=== PATIENT | male | born 1945 | race Caucasian/White ===

== ENCOUNTER 2017-01-07 08:00 | Outpatient (CLI) | payer MEDICARE, OTHER ==
[2017-01-07 14:40] LABS: BASOPHILS % (AUTO) 0.5 %; EOSINOPHILS # (AUTO) 0.1 10^3/uL (0.0-0.7); EOSINOPHILS % (AUTO) 1.8 %; HCT - HEMATOCRIT 48.9 % (42.0-52.0); HGB - HEMOGLOBIN 16.5 g/dL (14.0-18.0); LYMPHOCYTES # (AUTO) 1.9 10^3/uL (1.5-3.5); LYMPHOCYTES % (AUTO) 26.9 %; MEAN CORPUSCULAR HGB CONC 33.8 g/dL (32.0-36.0); MEAN CORPUSCULAR VOLUME 91.6 fL (80.0-94.0); MEAN PLATELET VOLUME 8.3 fL (7.4-11.4); MONOCYTES # (AUTO) 0.7 10^3/uL (0.0-1.0); MONOCYTES % (AUTO) 10.1 %; NEUTROPHILS # (AUTO) 4.3 10^3/uL (1.5-6.6); NEUTROPHILS % (AUTO) 60.7 %; RED BLOOD COUNT 5.33 10^6/uL (4.70-6.10); RED CELL DISTRIBUTION WIDTH 13.4 % (12.0-15.0)
[2017-01-07 14:43] LABS: ALBUMIN/GLOBULIN RATIO 1.3 (1.0-2.2); BUN - BLOOD UREA NITROGEN 14 mg/dL (6-20); CALCIUM 9.2 mg/dL (8.5-10.3); CARBON DIOXIDE - CO2 30 mmol/L (21-32); CHLORIDE 98 mmol/L (101-111); CHOLESTEROL 132 mg/dL; CREATININE 0.9 mg/dL (0.6-1.2); GFR - MDRD 84 (>89); GLUCOSE 80 mg/dL (70-100); HDL CHOLESTEROL 33 mg/dL; LDL/HDL RATIO 1.9 (<3.6); SODIUM 137 mmol/L (135-145); TOTAL PROTEIN 7.9 g/dL (6.7-8.2); TRIGLYCERIDES 184 mg/dL; VLDL CHOLESTEROL 37 mg/dL
== END 2017-01-07 23:59 | disposition home or self-care (01) ==
LOC: LAB.R 08:00
PROVIDERS: ATTEND Internal Medicine
DX: E78.5 Hyperlipidemia, unspecified (principal); I10 Essential (primary) hypertension; Z12.5 Encounter for screening for malignant neoplasm of prostate; Z79.899 Other long term (current) drug therapy
CPT/HCPCS: 80053; 80061; 85025; G0103; 84153

== ENCOUNTER 2017-09-04 08:18 | Day surgery (SDC) | payer MEDICARE, OTHER ==
[~2017-09-04 08:18] MED LIST: BRIMONIDINE 0.2% OPHTH DROPS 5 ML ONE; TIMOLOL 0.5% OPHTH DROPS ONE
[2017-09-04] MEDS ORDERED: LACTATED RINGERS 500 ML IV ONE (08:48)
[2017-09-04] MEDS ORDERED: KETOROLAC 0.45% OPHTH DROPS ONE (08:52)
[2017-09-04] MEDS ORDERED: PHENYLEPHRINE 2.5% OPHTH 2 ML DROPS ONE (08:52)
[2017-09-04] MEDS ORDERED: PROPARACAINE 0.5% OPHTH DROPS 15 ML ONE (08:52)
[2017-09-04] MEDS ORDERED: CYCLOPENTOLATE 1% OPHTH DROPS 2 ML ONE (08:52)
[2017-09-04] MEDS ORDERED: MIDAZOLAM 2 MG/2 ML VIAL IVP ONE (11:00)
[2017-09-04] MEDS ORDERED: EPINEPHrine 1 MG/ML AMP IR ONE (11:15)
[2017-09-04] MEDS ORDERED: BRIMONIDINE 0.2% OPHTH DROPS 5 ML OPTH ONE (11:15)
[2017-09-04] MEDS ORDERED: BSS/LIDOCAINE/EPINEPHRINE 1 ML SYRINGE IO ONE ×2 (11:16)
[2017-09-04] MEDS ORDERED: CHONDR SULF/HYALURONATE SYRINGE IO ONE (11:16)
[2017-09-04] MEDS ORDERED: TIMOLOL 0.5% OPHTH DROPS OPTH ONE (11:16)
[2017-09-04] MEDS ORDERED: TRIAMCIN/MOXIFLOX/VANCO 1 ML VIAL IO ONE (11:17)
[2017-09-04] MEDS ORDERED: PROPARACAINE 0.5% OPHTH DROPS 15 ML LEFTEYE ONE (11:17)
[2017-09-04 11:48] VITALS: BP 110/75
--- NOTE | 2017-09-04 20:41 | OPERATIVE REPORT ---
DATE OF SERVICE: 09/04/2017 Physician: Jesus Salguero MD PREOPERATIVE DIAGNOSIS: Visually significant cataract, left eye. This was his first cataract surgery. POSTOPERATIVE DIAGNOSIS: Visually significant cataract, left eye. This was his first cataract surgery. NAME OF PROCEDURE: Phacoemulsification with posterior chamber intraocular lens implant, left eye, with laser assist. SURGEON: Jesus Salguero MD ANESTHESIA: Monitored anesthesia care. COMPLICATIONS: None. OPERATIVE INDICATIONS: This is a 71-year-old man with progressive vision loss in the left eye due to 2+ nuclear sclerotic, 1+ cortical, and 1+ posterior subcapsular cataract. Best corrected visual acuity was not recorded. Indications for surgery were overall decrease in vision and difficulty driving at night because of headlights from other vehicles and/or street lights. He was consented at length concerning the risks and benefits of cataract surgery, after which he expressed a desire to proceed with surgery. OPERATIVE PROCEDURE: The patient was taken into OR #3 and placed under monitored anesthesia care. A surgical timeout was conducted confirming correct patient, correct procedure, and correct surgical site. He was placed on the LenSx laser and his eye was docked to the laser interface. The laser performed the capsulotomy, lens softening, phaco wounds and arcuate keratotomy incisions. He was then moved to the operating microscope, given topical anesthesia, and then prepped and draped in the usual sterile fashion. The eye was entered at the 6 and 3 o'clock position. Intracameral Shugarcaine was injected into the anterior chamber, followed by Viscoat. Capsulorrhexis flap created by the LenSx laser was removed from the anterior chamber. The nucleus was hydrodissected and phacoemulsified. The cortex was evacuated using automated infusion and aspiration. Provisc was injected in the capsular bag, and a 08.0 diopter intraocular lens inserted into the bag and rotated to axis 093 this being a toric [id number] IOL. Approximately 0.8 mL of a mixture of triamcinolone and moxifloxacin was injected subconjunctivally in the superior quadrant for infection and inflammation prophylaxis. I and A was used to evacuate the viscoelastic materials. The eye was inflated to physiologic pressure using balanced salt solution and found to be watertight, and the IOL was again verified to be at axis 093, as was necessary. The patient was then taken from the operating room in good condition and given postop instructions. TD: 09/04/2017 20:39
== END 2017-09-04 08:19 | disposition home or self-care (01) ==
LOC: SDS 08:18
PROVIDERS: ATTEND Ophthalmology
PROC: 08RK3JZ Replacement of Left Lens with Synthetic Substitute, Percutaneous Approach (ICD-10-PCS; principal; 2017-09-04 09:30)
DX: H25.812 Combined forms of age-related cataract, left eye (principal); I10 Essential (primary) hypertension; E78.00 Pure hypercholesterolemia, unspecified
CPT/HCPCS: 66984; A9270; J3490; V2632; V2787

== ENCOUNTER 2017-10-02 06:53 | Day surgery (SDC) | payer MEDICARE, OTHER ==
[2017-10-02] MEDS ORDERED: KETOROLAC 0.45% OPHTH DROPS ONE (07:14)
[2017-10-02] MEDS ORDERED: PHENYLEPHRINE 2.5% OPHTH 2 ML DROPS ONE (07:14)
[2017-10-02] MEDS ORDERED: CYCLOPENTOLATE 1% OPHTH DROPS 2 ML ONE (07:14)
[2017-10-02] MEDS ORDERED: PROPARACAINE 0.5% OPHTH DROPS 15 ML ONE (07:14)
[2017-10-02] MEDS ORDERED: BRIMONIDINE 0.2% OPHTH DROPS 5 ML ONE (07:21)
[2017-10-02] MEDS ORDERED: TIMOLOL 0.5% OPHTH DROPS ONE (07:21)
[2017-10-02] MEDS ORDERED: BSS/LIDOCAINE/EPINEPHRINE 1 ML SYRINGE ONE (07:22)
[2017-10-02] MEDS ORDERED: LACTATED RINGERS 500 ML IV ONE (07:23)
[2017-10-02] MEDS ORDERED: PROPARACAINE 0.5% OPHTH DROPS 15 ML RIGHTEYE ONE ×2 (07:24→08:43)
[2017-10-02] MEDS ORDERED: KETOROLAC 0.45% OPHTH DROPS RIGHTEYE ONE (07:24)
[2017-10-02] MEDS ORDERED: PHENYLEPHRINE 2.5% OPHTH 2 ML DROPS RIGHTEYE ONE (07:24)
[2017-10-02] MEDS ORDERED: CYCLOPENTOLATE 1% OPHTH DROPS 2 ML RIGHTEYE ONE (07:24)
[2017-10-02] MEDS ORDERED: MIDAZOLAM 2 MG/2 ML VIAL IVP ONE (08:33)
[2017-10-02] MEDS ORDERED: TRIAMCIN/MOXIFLOX/VANCO 1 ML VIAL IO ONE (08:43)
[2017-10-02] MEDS ORDERED: CHONDR SULF/HYALURONATE SYRINGE IO ONE (08:43)
[2017-10-02] MEDS ORDERED: EPINEPHrine 1 MG/ML AMP IR ONE (08:43)
[2017-10-02] MEDS ORDERED: BRIMONIDINE 0.2% OPHTH DROPS 5 ML OPTH ONE (08:43)
[2017-10-02] MEDS ORDERED: TIMOLOL 0.5% OPHTH DROPS OPTH ONE (08:43)
[2017-10-02] MEDS ORDERED: BSS/LIDOCAINE/EPINEPHRINE 1 ML SYRINGE IO ONE (08:43)
[2017-10-02 09:04] VITALS: BP 109/53
--- NOTE | 2017-10-02 10:32 | OPERATIVE REPORT ---
DATE OF SERVICE: 10/02/2017 Physician: Jesus Salguero MD PREOPERATIVE DIAGNOSIS: Visually significant cataract, right eye. Cataract surgery was performed on the left eye on 04 September 2017. POSTOPERATIVE DIAGNOSIS: Visually significant cataract, right eye. Cataract surgery was performed on the left eye on 04 September 2017. PROCEDURE PERFORMED: Phacoemulsification with posterior chamber intraocular lens implant, right eye. SURGEON: Jesus Salguero MD ANESTHESIA: Monitored anesthesia care. COMPLICATIONS: None. OPERATIVE INDICATIONS: This is a 71-year-old man with progressive vision loss in the right eye due to 2+ nuclear sclerotic cataract. Best corrected visual acuity was 20/25 with glare to 20/400 in the right eye. Indications for surgery were difficulty reading and a decrease in vision. He was consented at length concerning risks and benefits of cataract surgery after which he expressed desire to proceed with surgery. OPERATIVE PROCEDURE: The patient was taken into OR #3 and placed under monitored anesthesia care. Surgical time-out was conducted confirming correct patient, correct procedure and correct surgical site. He was placed under the LenSx laser and his eye docked to the laser interface. The laser performed the capsulotomy, lens softening, phaco wounds and arcuate keratotomy incisions. He was then moved to the operating microscope, given topical anesthesia and prepped and draped in the usual sterile fashion. Eye was entered at the 12 and 9 o'clock positions. Intracameral Shugarcaine was injected into the anterior chamber, followed by Viscoat. A capsulorrhexis flap created by the LenSx laser was removed from the anterior chamber. The nucleus was hydrodissected and phacoemulsified and the cortex was evacuated using automated infusion and aspiration. Provisc was injected in the capsular bag and a 9.0 diopter toric intraocular lens was inserted into the bag. This is a toric lens with an axis of 076. Once the lens was inserted and rotated to axis 076, approximately 0.8 mL of a mixture of triamcinolone and moxifloxacin and vancomycin was injected subconjunctivally in the superior quadrant for infection and inflammation prophylaxis. I and A was used to evacuate the viscoelastic material. The eye was inflated to physiologic pressure using balanced salt solution and found to be watertight. The IOL was then again verified to be at axis 076 as required. The patient was taken from the operating room in good condition and given postop instructions. TD: 10/02/2017 10:01 ARASELI
== END 2017-10-02 06:54 | disposition home or self-care (01) ==
LOC: SDS 06:53
PROVIDERS: ATTEND Ophthalmology
PROC: 08RJ3JZ Replacement of Right Lens with Synthetic Substitute, Percutaneous Approach (ICD-10-PCS; principal; 2017-10-02 08:00)
DX: H25.11 Age-related nuclear cataract, right eye (principal); I10 Essential (primary) hypertension
CPT/HCPCS: 66984; A9270; J3490; V2632; V2787

== ENCOUNTER 2018-02-19 08:05 | Outpatient (CLI) | payer MEDICARE, OTHER ==
[2018-02-19 13:41] LABS: BASOPHILS % (AUTO) 0.5 %; EOSINOPHILS # (AUTO) 0.2 10^3/uL (0.0-0.7); HGB - HEMOGLOBIN 16.6 g/dL (14.0-18.0); LYMPHOCYTES # (AUTO) 1.7 10^3/uL (1.5-3.5); MEAN CORPUSCULAR HEMOGLOBIN 31.1 pg (27.0-31.0); MEAN CORPUSCULAR HGB CONC 34.3 g/dL (32.0-36.0); MEAN CORPUSCULAR VOLUME 90.9 fL (80.0-94.0); MEAN PLATELET VOLUME 8.3 fL (7.4-11.4); MONOCYTES # (AUTO) 1.2 10^3/uL (0.0-1.0); MONOCYTES % (AUTO) 14.8 %; NEUTROPHILS # (AUTO) 4.9 10^3/uL (1.5-6.6); NEUTROPHILS % (AUTO) 61.7 %; PLT - PLATELET COUNT 222 10^3/uL (130-450); RED BLOOD COUNT 5.34 10^6/uL (4.70-6.10); RED CELL DISTRIBUTION WIDTH 13.4 % (12.0-15.0); WHITE BLOOD COUNT 7.9 x10^3/uL (4.8-10.8)
[2018-02-19 13:56] LABS: ALBUMIN 4.3 g/dL (3.2-5.5); ALBUMIN/GLOBULIN RATIO 1.2 (1.0-2.2); ALKALINE PHOSPHATASE 59 IU/L (42-121); ALT ALANINE AMINOTRANSFERASE 32 IU/L (10-60); AST ASPARTATE AMINOTRANSFERASE 32 IU/L (10-42); BILIRUBIN,TOTAL 1.2 mg/dL (0.2-1.0); BUN - BLOOD UREA NITROGEN 15 mg/dL (6-20); CALCIUM 9.2 mg/dL (8.5-10.3); CARBON DIOXIDE - CO2 29 mmol/L (21-32); CHLORIDE 97 mmol/L (101-111); CHOL/HDL RATIO 4.1 (<5.0); CHOLESTEROL 127 mg/dL; GFR - MDRD 74 (>89); GLUCOSE 89 mg/dL (70-100); HDL CHOLESTEROL 31 mg/dL; LDL CHOLESTEROL,CALCULATED 65 mg/dL; LDL/HDL RATIO 2.1 (<3.6); SODIUM 135 mmol/L (135-145); TOTAL PROTEIN 7.8 g/dL (6.7-8.2); VLDL CHOLESTEROL 31 mg/dL
== END 2018-02-19 08:06 ==
LOC: LAB.R 08:05
PROVIDERS: ATTEND Internal Medicine
DX: E78.5 Hyperlipidemia, unspecified (principal); I10 Essential (primary) hypertension; Z79.899 Other long term (current) drug therapy
CPT/HCPCS: 80053; 80061; 83721; 84443; 85025

== ENCOUNTER 2019-06-10 07:21 | Outpatient (CLI) | payer MEDICARE, OTHER ==
[2019-06-10 07:44] LABS: BASOPHILS % (AUTO) 0.6 %; EOSINOPHILS # (AUTO) 0.4 10^3/uL (0.0-0.7); EOSINOPHILS % (AUTO) 5.2 %; HGB - HEMOGLOBIN 17.4 g/dL (14.0-18.0); LYMPHOCYTES # (AUTO) 2.1 10^3/uL (1.5-3.5); LYMPHOCYTES % (AUTO) 29.3 %; MEAN CORPUSCULAR HEMOGLOBIN 30.6 pg (27.0-31.0); MEAN CORPUSCULAR HGB CONC 33.6 g/dL (32.0-36.0); MEAN PLATELET VOLUME 9.5 fL (7.4-11.4); MONOCYTES # (AUTO) 0.7 10^3/uL (0.0-1.0); MONOCYTES % (AUTO) 9.7 %; NEUTROPHILS % (AUTO) 54.9 %; PLT - PLATELET COUNT 242 10^3/uL (130-450); RED BLOOD COUNT 5.69 10^6/uL (4.70-6.10); RED CELL DISTRIBUTION WIDTH 13.1 % (12.0-15.0); WHITE BLOOD COUNT 7.2 x10^3/uL (4.8-10.8)
[2019-06-10 07:57] LABS: ALBUMIN 4.8 g/dL (3.2-5.5); ALBUMIN/GLOBULIN RATIO 1.3 (1.0-2.2); ALKALINE PHOSPHATASE 46 IU/L (42-121); ALT ALANINE AMINOTRANSFERASE 36 IU/L (10-60); AST ASPARTATE AMINOTRANSFERASE 35 IU/L (10-42); BILIRUBIN,TOTAL 1.4 mg/dL (0.2-1.0); BUN - BLOOD UREA NITROGEN 16 mg/dL (6-20); CALCIUM 9.4 mg/dL (8.5-10.3); CARBON DIOXIDE - CO2 29 mmol/L (21-32); CHLORIDE 96 mmol/L (101-111); CHOL/HDL RATIO 4.2 (<5.0); CHOLESTEROL 154 mg/dL; CREATININE 0.9 mg/dL (0.6-1.2); GFR - MDRD 83 (>89); GLUCOSE 109 mg/dL (70-100); HDL CHOLESTEROL 37 mg/dL; LDL CHOLESTEROL,CALCULATED 80 mg/dL; LDL/HDL RATIO 2.2 (<3.6); SODIUM 137 mmol/L (135-145); TOTAL PROTEIN 8.4 g/dL (6.7-8.2); VLDL CHOLESTEROL 37 mg/dL
[2019-06-10 08:05] LABS: HB2 TOTAL 17.7 g/dL; HEMOGLOBIN A1C 0.69 g/dL; HEMOGLOBIN A1C % 5.7 % (4.6-6.2)
== END 2019-06-10 07:22 | disposition home or self-care (01) ==
LOC: LAB 07:21
PROVIDERS: ATTEND Family Medicine
DX: Z79.899 Other long term (current) drug therapy (principal); E78.5 Hyperlipidemia, unspecified; I10 Essential (primary) hypertension
CPT/HCPCS: 36415; 80053; 80061; 83036; 83721; 84443; 85025

== ENCOUNTER 2019-07-27 09:19 | Outpatient (CLI) | payer MEDICARE, OTHER | END 2019-07-27 09:20 | disposition home or self-care (01) | LOC: RT 09:19 | PROVIDERS: ATTEND Surgery | DX: Z01.810 Encounter for preprocedural cardiovascular examination (principal); K40.20 Bilateral inguinal hernia, without obstruction or gangrene, not specified as recurrent | CPT/HCPCS: 93005 ==

== ENCOUNTER 2020-05-26 07:56 | Outpatient (CLI) | payer MEDICARE, OTHER ==
[2020-05-26 08:46] LABS: BASOPHILS % (AUTO) 0.5 %; EOSINOPHILS # (AUTO) 0.5 10^3/uL (0.0-0.7); EOSINOPHILS % (AUTO) 6.1 %; HGB - HEMOGLOBIN 16.7 g/dL (14.0-18.0); LYMPHOCYTES % (AUTO) 25.6 %; MEAN CORPUSCULAR HEMOGLOBIN 31.2 pg (27.0-31.0); MEAN CORPUSCULAR HGB CONC 33.9 g/dL (32.0-36.0); MEAN CORPUSCULAR VOLUME 91.8 fL (80.0-94.0); MEAN PLATELET VOLUME 9.1 fL (7.4-11.4); MONOCYTES # (AUTO) 0.9 10^3/uL (0.0-1.0); MONOCYTES % (AUTO) 11.2 %; NEUTROPHILS # (AUTO) 4.3 10^3/uL (1.5-6.6); NEUTROPHILS % (AUTO) 56.3 %; PLT - PLATELET COUNT 228 10^3/uL (130-450); RED BLOOD COUNT 5.36 10^6/uL (4.70-6.10); RED CELL DISTRIBUTION WIDTH 13.1 % (12.0-15.0); WHITE BLOOD COUNT 7.7 x10^3/uL (4.8-10.8)
[2020-05-26 08:50] LABS: CALCIUM 9.4 mg/dL (8.5-10.3); CREATININE 0.9 mg/dL (0.6-1.2)
== END 2020-05-26 07:57 | disposition home or self-care (01) ==
LOC: LAB 07:56
PROVIDERS: ATTEND Family Medicine
DX: K40.20 Bilateral inguinal hernia, without obstruction or gangrene, not specified as recurrent (principal); I10 Essential (primary) hypertension
CPT/HCPCS: 36415; 80048; 85025

== ENCOUNTER 2020-06-15 09:23 | Outpatient (CLI) | payer MEDICARE, OTHER ==
--- NOTE | 2020-06-15 10:14 | CT Report ---
PROCEDURE: HEAD WO INDICATIONS: MEMORY LOSS TECHNIQUE: Noncontrast 4.5 mm thick angled axial sections acquired from the foramen magnum to the vertex. For r adiation dose reduction, the following was used: automated exposure control, adjustment of mA and/or kV according to patient size. COMPARISON: None FINDINGS: Image quality: Excellent. CSF spaces: Basal cisterns are patent. No extra-axial fluid collections. The ventricles are symmet marva in size and shape. Brain: No intracranial bleeds or masses. There is mild cerebral volume loss for age, with resultant ventricular and sulcal prominence. There are mild periventricular and deep white matter chronic sma ll vessel ischemic changes. There is intracranial internal carotid artery and vertebral artery ather osclerosis. Skull and face: Calvarium and visualized facial bones appear intact, without suspicious lesions. Sinuses: Visualized sinuses and mastoids are clear. IMPRESSION: <<?>> Reviewed by: Elana Ross MD, PhD on 06/15/2020 9:13 AM [facility] Approved by: Elana Ross MD, PhD on 06/15/2020 9:13 AM [facility] Station ID: [id number]
--- NOTE | 2020-06-15 15:26 | XRAY Report ---
PROCEDURE: Hip w/Pelvis 2-3V LT INDICATIONS: LEFT HIP PAIN TECHNIQUE: AP pelvis with lateral view(s) of the bilateral hip(s). COMPARISON: None. FINDINGS: Bones: No fractures or dislocations. Pelvic ring appears intact. No suspicious bony lesions. Mild bilateral degenerative hip joint space narrowing. Degenerative changes also present within the lower lumbar spine. Minimal paratracheal or osteophytes. No erosions. Soft tissues: The visualized bowel gas pattern is normal. No suspicious soft tissue calcifications. IMPRESSION: Mild bilateral hip osteoarthritis as above. Reviewed by: Aster York MD on 06/15/2020 3:24 PM PST Approved by: Aster York MD on 06/15/2020 3:24 PM PST Station ID: [id number]
== END 2020-06-15 09:24 | disposition home or self-care (01) ==
LOC: DI 09:23
PROVIDERS: ATTEND Family Medicine
DX: R41.3 Other amnesia (principal); M16.0 Bilateral primary osteoarthritis of hip

== ENCOUNTER 2020-07-26 06:58 | Outpatient (CLI) | payer MEDICARE, OTHER ==
[2020-07-26 07:42] LABS: BASOPHILS % (AUTO) 0.6 %; EOSINOPHILS # (AUTO) 0.4 10^3/uL (0.0-0.7); EOSINOPHILS % (AUTO) 5.9 %; HCT - HEMATOCRIT 49.3 % (42.0-52.0); HGB - HEMOGLOBIN 16.5 g/dL (14.0-18.0); LYMPHOCYTES % (AUTO) 30.5 %; MEAN CORPUSCULAR HEMOGLOBIN 30.8 pg (27.0-31.0); MEAN CORPUSCULAR HGB CONC 33.5 g/dL (32.0-36.0); MEAN PLATELET VOLUME 9.5 fL (7.4-11.4); MONOCYTES # (AUTO) 0.6 10^3/uL (0.0-1.0); MONOCYTES % (AUTO) 9.5 %; NEUTROPHILS # (AUTO) 3.5 10^3/uL (1.5-6.6); NEUTROPHILS % (AUTO) 52.4 %; PLT - PLATELET COUNT 241 10^3/uL (130-450); RED BLOOD COUNT 5.36 10^6/uL (4.70-6.10); RED CELL DISTRIBUTION WIDTH 12.8 % (12.0-15.0); WHITE BLOOD COUNT 6.6 x10^3/uL (4.8-10.8)
[2020-07-26 07:45] LABS: ALBUMIN 4.4 g/dL (3.2-5.5); ALBUMIN/GLOBULIN RATIO 1.2 (1.0-2.2); ALKALINE PHOSPHATASE 50 IU/L (42-121); ALT ALANINE AMINOTRANSFERASE 29 IU/L (10-60); AST ASPARTATE AMINOTRANSFERASE 27 IU/L (10-42); BILIRUBIN,TOTAL 0.9 mg/dL (0.2-1.0); BUN - BLOOD UREA NITROGEN 23 mg/dL (6-20); CALCIUM 9.5 mg/dL (8.5-10.3); CARBON DIOXIDE - CO2 30 mmol/L (21-32); CHLORIDE 101 mmol/L (101-111); CHOL/HDL RATIO 3.8 (<5.0); CHOLESTEROL 129 mg/dL; CREATININE 0.9 mg/dL (0.6-1.2); GFR - MDRD 83 (>89); GLUCOSE 103 mg/dL (70-100); HDL CHOLESTEROL 34 mg/dL; LDL CHOLESTEROL,CALCULATED 63 mg/dL; LDL/HDL RATIO 1.9 (<3.6); POTASSIUM 4.2 mmol/L (3.5-5.0); SODIUM 140 mmol/L (135-145); TRIGLYCERIDES 161 mg/dL; VLDL CHOLESTEROL 32 mg/dL
== END 2020-07-26 06:59 | disposition home or self-care (01) ==
LOC: LAB 06:58
PROVIDERS: ATTEND Family Medicine
DX: I10 Essential (primary) hypertension (principal); E78.5 Hyperlipidemia, unspecified; R41.3 Other amnesia
CPT/HCPCS: 36415; 80053; 80061; 82607; 82746; 83721; 85025; 86592; 86593; 86780

== ENCOUNTER 2021-07-03 10:04 | Outpatient (CLI) | payer MEDICARE, OTHER ==
--- NOTE | 2021-07-03 12:42 | XRAY Report ---
PROCEDURE: Knee 3 View RT INDICATIONS: HX OF KNEE REPLACEMENT,RIGHT TECHNIQUE: 3 views of the right knee(s) were acquired. COMPARISON: None. FINDINGS: Bones: Right knee arthroplasty without evidence of hardware couple months. No acute, displaced fractu re. Soft tissues: Trace joint effusion. No suspicious soft tissue calcifications. IMPRESSION: No acute osseous abnormality. Reviewed by: Bjorn Pichardo MD on 07/03/2021 12:41 PM PST Approved by: Bjorn Pichardo MD on 07/03/2021 12:41 PM PST Station ID: [id number]
== END 2021-07-03 10:05 | disposition home or self-care (01) ==
LOC: DI 10:04
PROVIDERS: ATTEND Internal Medicine
DX: Z96.651 Presence of right artificial knee joint (principal)

== ENCOUNTER 2022-07-23 07:59 | Outpatient (CLI) | payer MEDICARE, OTHER ==
[2022-07-23 08:12] LABS: BASOPHILS # (AUTO) 0.1 10^3/uL (0.0-0.1); BASOPHILS % (AUTO) 0.5 %; EOSINOPHILS # (AUTO) 0.5 10^3/uL (0.0-0.7); HCT - HEMATOCRIT 51.7 % (42.0-52.0); HGB - HEMOGLOBIN 16.9 g/dL (14.0-18.0); LYMPHOCYTES # (AUTO) 2.2 10^3/uL (1.5-3.5); LYMPHOCYTES % (AUTO) 22.4 %; MEAN CORPUSCULAR HEMOGLOBIN 30.3 pg (27.0-31.0); MEAN CORPUSCULAR HGB CONC 32.7 g/dL (32.0-36.0); MEAN CORPUSCULAR VOLUME 92.8 fL (80.0-94.0); MEAN PLATELET VOLUME 9.7 fL (7.4-11.4); MONOCYTES % (AUTO) 10.1 %; NEUTROPHILS % (AUTO) 61.7 %; PLT - PLATELET COUNT 231 10^3/uL (130-450); RED BLOOD COUNT 5.57 10^6/uL (4.70-6.10); RED CELL DISTRIBUTION WIDTH 13.3 % (12.0-15.0); WHITE BLOOD COUNT 9.7 x10^3/uL (4.8-10.8)
[2022-07-23 08:39] LABS: ALBUMIN 4.2 g/dL (3.2-5.5); ALBUMIN/GLOBULIN RATIO 1.1 (1.0-2.2); ALKALINE PHOSPHATASE 62 IU/L (42-121); ALT ALANINE AMINOTRANSFERASE 31 IU/L (10-60); AST ASPARTATE AMINOTRANSFERASE 30 IU/L (10-42); BUN - BLOOD UREA NITROGEN 18 mg/dL (6-20); CALCIUM 9.4 mg/dL (8.5-10.3); CARBON DIOXIDE - CO2 31 mmol/L (21-32); CHLORIDE 100 mmol/L (101-111); CHOL/HDL RATIO 3.6 (<5.0); CHOLESTEROL 123 mg/dL; GFR - MDRD 73 (>89); GLUCOSE 105 mg/dL (70-100); HDL CHOLESTEROL 34 mg/dL; LDL CHOLESTEROL,CALCULATED 59 mg/dL; LDL/HDL RATIO 1.7 (<3.6); POTASSIUM 3.9 mmol/L (3.5-5.0); SODIUM 138 mmol/L (135-145); TRIGLYCERIDES 151 mg/dL; VLDL CHOLESTEROL 30 mg/dL
[2022-07-23 08:43] LABS: THYROID STIMULATING HORMONE 3.78 uIU/mL (0.34-5.60)
== END 2022-07-23 08:00 | disposition home or self-care (01) ==
LOC: LAB 07:59
PROVIDERS: ATTEND Internal Medicine
DX: I10 Essential (primary) hypertension (principal); E78.5 Hyperlipidemia, unspecified; F32.A Depression, unspecified
CPT/HCPCS: 36415; 80053; 80061; 83721; 84443; 85025

== ENCOUNTER 2022-08-01 11:44 | Outpatient (CLI) | payer MEDICARE, OTHER ==
[2022-08-01] MEDS ORDERED: iohexoL-300 100 ML VIAL ONE (11:54)
[2022-08-01] MEDS ORDERED: DIATRIZOATE MEGLU/DIATRIZO SOD 30 ML BOTTLE PO ONE (14:29)
[2022-08-01] MEDS ORDERED: iohexoL-300 100 ML VIAL IVP ONE (14:29)
--- NOTE | 2022-08-01 16:37 | CT Report ---
PROCEDURE: ABDOMEN/PELVIS W INDICATIONS: PERIPHERAL CYANOSIS, ABDOMINAL SWELLING CONTRAST: 100ml Omnipaque 300 TECHNIQUE: After the administration of oral and intravenous contrast, 5 mm thick sections acquired from the diap hragms to the symphysis. 5 mm thick coronal and sagittal reformats were acquired. For radiation dos e reduction, the following was used: automated exposure control, adjustment of mA and/or kV accordin g to patient size. COMPARISON: None. FINDINGS: Image quality: Excellent. ABDOMEN: Lung bases: Lung bases are clear. Heart size is normal. Solid organs: Liver and spleen are normal in size and enhancement. Gallbladder is unremarkable. Bi liary system is non dilated. Pancreas enhances normally. No adrenal nodules. Kidneys demonstrate n ormal size and enhancement, without hydronephrosis. Peritoneum and bowel: Bowel loops demonstrate normal wall thickness and caliber. No free fluid or a ir. Nodes and vessels: No retroperitoneal or mesenteric adenopathy by size criteria. Aorta and inferior vena cava are normal in size. Miscellaneous: Tiny umbilical hernia containing fat. PELVIS: Genitourinary: Bladder wall thickness is normal. Miscellaneous: No inguinal hernias or adenopathy. Bilateral inguinal repair. Bones: No suspicious bony lesions. No vertebral body compression fractures. IMPRESSION: No acute abnormality. Reviewed by: George Escobedo on 08/01/2022 4:36 PM PST Approved by: George Escobedo on 08/01/2022 4:36 PM PST Station ID: [id number]
== END 2022-08-01 11:45 | disposition home or self-care (01) ==
LOC: DI 11:44
PROVIDERS: ATTEND Internal Medicine
DX: R19.00 Intra-abdominal and pelvic swelling, mass and lump, unspecified site (principal); R59.0 Localized enlarged lymph nodes
CPT/HCPCS: 74177; Q9963; Q9967

== ENCOUNTER 2022-08-29 06:45 | Outpatient (CLI) | payer MEDICARE, OTHER ==
--- NOTE | 2022-08-30 07:08 | Ultrasound Report ---
PROCEDURE: Duplex Lwr Ext Arterial Bilat INDICATIONS: PERIPHERAL CYANOSIS, ABDOMINAL SWELLING TECHNIQUE: Color and pulse Doppler interrogation was performed of both lower extremity arterial systems, with im age documentation. COMPARISON: None FINDINGS: Right lower extremity: Common femoral artery: 77 cm/sec, with biphasic flow. Deep femoral artery: 20 cm/sec, with biphasic flow. Proximal superficial femoral artery: 71 cm/sec, with triphasic flow. Mid superficial femoral artery: 92 cm/sec, with triphasic flow. Distal superficial femoral artery: 69 cm/sec, with triphasic flow. Popliteal artery: 56 cm/sec, with triphasic flow. Posterior tibial artery: 89 cm/sec, with triphasic flow. Anterior tibial artery/dorsalis pedis: 88 cm/sec, with triphasic flow. Miles-scale imaging description: Mild diffuse plaque Left lower extremity: Common femoral artery: 67 cm/sec, with triphasic flow. Deep femoral artery: 35 cm/sec, with biphasic flow. Proximal superficial femoral artery: 66 cm/sec, with triphasic flow. Mid superficial femoral artery: 69 cm/sec, with triphasic flow. Distal superficial femoral artery: 52 cm/sec, with biphasic flow. Popliteal artery: 59 cm/sec, with biphasic flow. Posterior tibial artery: 74 cm/sec, with biphasic flow. Anterior tibial artery/dorsalis pedis: 56 cm/sec, with biphasic flow. Miles-scale imaging description: Mild diffuse plaque IMPRESSION: No evidence of arterial insufficiency to the bilateral lower extremities. Reviewed by: Beba Machado MD on 08/29/2022 4:44 PM PDT Approved by: Beba Machado MD on 08/29/2022 4:44 PM PDT Station ID: [id number]
--- NOTE | 2022-08-30 07:08 | Ultrasound Report ---
PROCEDURE: Duplex Aorta Complete INDICATIONS: PERIPHERAL CYANOSIS, ABDOMINAL SWELLING TECHNIQUE: Ultrasound of the aorta and iliac arteries is performed. COMPARISON: None. FINDINGS: Proximal abdominal aorta measures 34 mm. Mid abdominal aorta measures 31 mm. Distal abdominal aorta m easures 30 mm. Right common iliac artery and external iliac artery demonstrate normal flow velocities as visualized. Left common and external iliac arteries demonstrate normal flow velocities as visualized. IMPRESSION: 1. No evidence of aortoiliac aneurysm. 2. No evidence of aortoiliac inflow stenosis. Reviewed by: Beba Machado MD on 08/29/2022 4:52 PM PDT Approved by: Beba Machado MD on 08/29/2022 4:52 PM PDT Station ID: [id number]
== END 2022-08-29 06:46 | disposition home or self-care (01) ==
LOC: DI 06:45
PROVIDERS: ATTEND Internal Medicine
DX: R23.0 Cyanosis (principal)
CPT/HCPCS: 93925; 93978

== ENCOUNTER 2023-01-23 12:12 | Outpatient (CLI) | payer MEDICARE, OTHER ==
[2023-01-23 12:36] LABS: BASOPHILS # (AUTO) 0.1 10^3/uL (0.0-0.1); BASOPHILS % (AUTO) 0.7 %; EOSINOPHILS # (AUTO) 0.6 10^3/uL (0.0-0.7); EOSINOPHILS % (AUTO) 7.7 %; HCT - HEMATOCRIT 50.5 % (42.0-52.0); HGB - HEMOGLOBIN 16.4 g/dL (14.0-18.0); LYMPHOCYTES % (AUTO) 27.5 %; MEAN CORPUSCULAR HEMOGLOBIN 30.7 pg (27.0-31.0); MEAN CORPUSCULAR HGB CONC 32.5 g/dL (32.0-36.0); MEAN CORPUSCULAR VOLUME 94.4 fL (80.0-94.0); MEAN PLATELET VOLUME 9.8 fL (7.4-11.4); MONOCYTES # (AUTO) 0.9 10^3/uL (0.0-1.0); MONOCYTES % (AUTO) 12.8 %; NEUTROPHILS # (AUTO) 3.7 10^3/uL (1.5-6.6); PLT - PLATELET COUNT 207 10^3/uL (130-450); RED BLOOD COUNT 5.35 10^6/uL (4.70-6.10); WHITE BLOOD COUNT 7.2 x10^3/uL (4.8-10.8)
[2023-01-23 12:47] LABS: ALBUMIN 4.5 g/dL (3.2-5.5); ALBUMIN/GLOBULIN RATIO 1.4 (1.0-2.2); BILIRUBIN,TOTAL 0.8 mg/dL (0.2-1.0); CALCIUM 10.2 mg/dL (8.5-10.3); POTASSIUM 4.6 mmol/L (3.5-4.5); TOTAL PROTEIN 7.7 g/dL (6.4-8.9)
[2023-01-23 13:11] LABS: BILIRUBIN,URINE NEGATIVE (NEGATIVE); GLUCOSE, URINE (UA) NEGATIVE (NEGATIVE); KETONES,URINE (UA) TRACE mg/dL (NEGATIVE); LEUKOCYTE ESTERASE, URINE NEGATIVE (NEGATIVE); NITRITE,URINE NEGATIVE (NEGATIVE); OCCULT BLOOD,URINE NEGATIVE (NEGATIVE); PROTEIN,URINE NEGATIVE (NEGATIVE); UROBILINOGEN,URINE 0.2 (NORMAL) E.U./dL (NORMAL)
[2023-01-23 13:14] LABS: CLARITY,URINE CLEAR (CLEAR)
[2023-01-23 13:33] LABS: BACTERIA,URINE Rare /HPF (None Seen); RBC,URINE 0-5 /HPF (0-5); SQUAMOUS EPITHELIAL CELL,UR RARE Squamous (<= Few); WBC,URINE 0-3 /HPF (0-3)
== END 2023-01-23 12:13 | disposition home or self-care (01) ==
LOC: LAB 12:12
PROVIDERS: ATTEND Internal Medicine
DX: I10 Essential (primary) hypertension (principal); R31.9 Hematuria, unspecified; N40.1 Benign prostatic hyperplasia with lower urinary tract symptoms
CPT/HCPCS: 36415; 80053; 81001; 84153; 85025; 87086

== ENCOUNTER 2023-05-02 07:45 | Outpatient (CLI) | payer MEDICARE, OTHER ==
[2023-05-02 08:13] LABS: CHOLESTEROL 159 mg/dL; HDL CHOLESTEROL 32 mg/dL; LDL CHOLESTEROL,CALCULATED 81 mg/dL; LDL/HDL RATIO 2.5 (<3.6); TRIGLYCERIDES 231 mg/dL (48-352); VLDL CHOLESTEROL 46 mg/dL
== END 2023-05-02 07:46 | disposition home or self-care (01) ==
LOC: LAB 07:45
PROVIDERS: ATTEND Internal Medicine
DX: E78.5 Hyperlipidemia, unspecified (principal)
CPT/HCPCS: 36415; 80061; 83721

== ENCOUNTER 2025-04-24 11:20 | Inpatient (IN) ==
--- NOTE | 2025-04-24 11:41 | ED Physician Documentation ---
History of Present Illness Stated complaint Stated Complaint: FEVER Chief complaint Chief Complaint: Fever Additonal information Additional information: Patient is a 79-year-old male with advanced dementia presenting with altered mental status and fever beginning this morning. According to and son in room, he is been dealing dementia for 5 years. He does live at home with them. EMS states that the family shared that he was acting his normal baseline self yesterday, though this morning appeared to need more prompting and prodding to feed, and to respond to them. He will give yes and no answers. Today he was not offering these answers. The family took a temperature at home and it was noted to be at 104. Therefore EMS was called. EMS shares that their temperature was 100.4 in their rig. He is normally on room air, but was put on 2 L nasal cannula with EMS and had improved oxygenation. On room air he was found to be saturating in the low 80s. Patient does not contribute to history currently secondary to mental status. Family denies any recent signs of cough, sore throat, rhinorrhea. They deny any recent travel or known exposures. The patient otherwise has not been having diarrheal illness, or known urinary problems. Apart from the history of Alzheimer's, the family maintains that he is healthy and does not have any significant heart, lung, kidney, liver issues. Review of Systems Status of ROS: See HPI Meds/Allgy Home Medications Ambulatory Orders Medication Instructions Recorded Confirmed multivitamin 1 ea PO DAILY 09/03/1704/24 acyclovir 400 mg tablet 200 mg PO QID PRN As Needed Per 07/27/19 04/24/25 Provider Orders latanoprost (PF) 0.005 % eye drops 1 drp EACHEYE DAILY 07/27/19 04/24/25 nystatin 100,000 unit/gram topical 1 applic topical TI D tinea coporis 07/29/24 04/24/25 powder 14 days #30 grams triamcinolone acetonide 0.5 % 1 applic topical BID #15 grams 11/23/24 04/24/25 topical cream memantine 10 mg tablet (Namenda) 10 mg PO BID #180 tab s 01/28/25 04/24/25 galantamine 8 mg tablet 8 mg PO BID #180 tabs 04/24/25 finasteride 5 mg tablet 5 mg PO QDAY #90 tabs 04/24/25 tamsulosin 0.4 mg capsule 0.4 mg PO QDAY #90 caps 10/0 08/1704/24/25 citalopram 10 mg tablet 10 mg PO QDAY 30 days #30 ta bs 04/19/25 04/24/25 Allergies Allergies Allergy/AdvReac Type Severity Reaction Status Date / Time No Known Drug Allergies Allergy Verified 04/24/25 11:28 PFSH Active Problems All Active Problems (Updated 04/24/25 @ 13:07 by Bert Hernandez MD) Sepsis (Acute) Sepsis (Acute) 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) Urinary incontinence (Acute) Difficulty walking (Acute) Abnormal blood cell count (Acute) Hypotension (Acute) Decreased appetite (Acute) Weight loss (Acute) Alzheimer's dementia (Acute) Eczema (Acute) Hyperlipidemia (Acute) Hypertension, essential, benign (Acute) Tinea corporis (Acute) Irritant contact dermatitis due to urine (Acute) Medical History Medical History Alzheimer's dementia Social History Social History (Updated 04/24/25 @ 12:49 by Edith Turner RN) Smoking Status: Never smoker Second hand tobacco smoke exposure: No Do you dip or chew tobacco?: No Do you vape?: No Living arrangement: At home Marital Status: Living Condition: With spouse/s.o. Support Person: Yes Health Care Directive on file?: No Level: Dependent Do you feel safe in your home environment?: Yes History of physical, verbal, emotional, or financial abuse?: No ETOH Use: None Substance Use: denies use POLST Patient has POLST: No Exam Exam Vital Signs: Vital Signs x48h Temp Pulse Resp BP Pulse Ox O2 Flow Rate 04/24/25 12:29 37.3 C 104 H 47 H 125/80 95 4 04/24/25 11:22 39.4 C H 100 35 H 123/73 91 L 4 Constitutional Sitting up in examination bed, with increased respiratory rate. No diaphoresis. No pallor. HENMT normocephalic and head/scalp atraumatic Eyes PERRL and conjunctivae normal Neck/C-Spine supple Respiratory no wheezes and no rales Rest rate of 34 at bedside. Saturating at 93% on 4 L nasal cannula. Lungs clear to auscultation bilaterally. Cardiovascular Normotensive, regular rate and rhythm. Normal S1-S2, no murmurs. Radial pulses 2+ and symmetric. Gastrointestinal abdomen soft to palpation and nontender to palpation Genitourinary no CVA tenderness Extremities normal to inspection Neurology Patient unable to answer all alertness and orientation question secondary to altered mental status. Not responding to questioning regarding strength, sensation, coordination. Unable to appropriately assess cranial nerve function. Psychiatry Sitting up in examination bed, not responding to my prompting. Skin Mild pallor Results Vitals Vitals: Vital Signs - 24 hr 04/24/25 11:22 04/24/25 12:29 Temperature 39.4 C H 37.3 C Temperature Source Oral Pulse Rate 100 104 H Respiratory Rate 35 H 47 H Blood Pressure 123/73 125/80 O2 Saturation 91 L 95 O2 Source Nasal cannula Nasal cannula If not protocol: Oxygen Flow, liters/minute 4 4 Pain Intensity 0 0 Oxygen O2 Source Nasal cannula Labs Labs: Laboratory Tests 04/24/25 04/24/25 04/24/25 11:46 11:50 12:29 WBC 12.3 H RBC 4.46 L Hgb 13.9 L Hct 42.4 MCV 95.1 H MCH 31.2 H MCHC 32.8 RDW 12.9 Plt Count 149 MPV 9.9 Neut # (Auto) 11.2 H Lymph # (Auto) 0.2 L [place] # (Auto) 0.8 Eos # (Auto) 0.0 Baso # (Auto) 0.0 Absolute Nucleated RBC 0.00 Nucleated RBC % 0.0 VBG pH 7.454 H VBG pCO2 38.4 L VBG pO2 41.7 VBG HCO3 27.2 VBG Total CO2 28.4 VBG O2 Saturation 59.0 L VBG Base Excess 3.1 H Sodium 139 Potassium 3.4 L Chloride 106 Carbon Dioxide 27 Anion Gap 6.0 BUN 21 H Creatinine 0.9 Estimated GFR (MDRD) 82 L Glucose 109 H Lactic Acid 1.8 Calcium 8.4 L Total Bilirubin 0.9 AST 18 ALT 12 Alkaline Phosphatase 63 Total Protein 6.2 L Albumin 3.6 Globulin 2.6 Albumin/Globulin Ratio 1.4 Procalcitonin Immunoas 2.05 H* Nasal Adenovirus (PCR) NOT DETECTED Nasal B. parapertussis DNA (PCR) NOT DETECTED Nasal Coronavir 229E PCR NOT DETECTED Nasal Coronavir HKU1 PCR NOT DETECTED Nasal Coronavir NL63 PCR NOT DETECTED Nasal Coronavir OC43 PCR NOT DETECTED Nasal Enterovir/Rhinovir PCR NOT DETECTED Nasal Influenza B PCR NOT DETECTED Nasal Influenza A PCR NOT DETECTED Nasal Parainfluen 1 PCR NOT DETECTED Nasal Parainfluen 2 PCR NOT DETECTED Nasal Parainfluen 3 PCR NOT DETECTED Nasal Parainfluen 4 PCR NOT DETECTED Nasal RSV (PCR) NOT DETECTED Nasal B.pertussis DNA PCR NOT DETECTED Nasal C.pneumoniae (PCR) NOT DETECTED Mukesh Human Metapneumo PCR NOT DETECTED Nasal M.pneumoniae (PCR) NOT DETECTED Nasal SARS-CoV-2 (PCR) NOT DETECTED PD Medical Decision Making ED course ED course: Assessment: Patient is a 79-year-old male with history of severe dementia who lives at home with and son who take care of him. This morning he developed fever, and worsening mental status so he was brought to the ER. At baseline he says yes and no and will be interactive. However today on arrival he is not responding to my questioning. He has an increased respiratory rate, and is newly on 4 L nasal cannula. DDx: Includes but not limited to, viral upper respiratory syndrome, viral pneumonia, bacterial pneumonia, heart failure exacerbation, emphysema, bacteremia, sepsis, UTI, electrolyte abnormality, etc. Workup: CBC with a white count 12.3, hemoglobin 13.9. Venous blood pH of 7.45, pCO2 of 38.4, bicarb of 27.2, consistent with mild respiratory alkalosis. CMP with normal sodium, potassium 3.4. BUN is 21. Lactic acid is not elevated. Procalcitonin is elevated to 0.05. Respiratory panel is negative. Chest x-ray, effusion, pneumothorax, or other pulmonary process. Stable cardiac and diaphragmatic silhouette. No osseous abnormalities. Treatment: 1000 mg IV Tylenol, 1 L normal saline, cefepime 2 g Discussion: Patient's presentation is immediately concerning for sepsis of unclear etiology. He was febrile on arrival, and broad infectious workup was started. Did give IV Tylenol which improved his temperature. Also gave him an additional liter of fluid, and started him on cefepime for broad antibiotic coverage. Interestingly his chest x-ray is unremarkable, I would have assumed initially that this patient was having an upper respiratory driven septic episode. He does have a elevated procalcitonin, elevated white count. He does appear more altered than his typical baseline. I discussed his presentation with on-call hospitalist who agreed to admit him after a significant portion of his workup is completed for treatment of sepsis, and further workup and evaluation. of patient and son are agreeable with this plan. Throughout his time in the ER he remained stable with no hemodynamic changes on 4 L nasal cannula. Discharge Plan Discharge Patient Disposition: [facility] DC/Xfer Condition: Stable Clinical Impression: Sepsis Interventions: ED Admission Assessment Last Done: 04/24/25 14:02 Vitals documented within 30 minutes of discharge?: Yes
--- OUTSIDE RECORDS SUMMARY | 2025-04-24 11:56 | EXTERNAL MEDICAL SUMMARY RPT | Continuity of Care Document ---
Author Organization [facility] Address [address] [place] [id number] Phone Problems date description facility 2025-04-19 15:14 [facility] D [facility], [facility] 2025-04-19 15:14 Hyperlipidemia, unspecified i [facility] 2025-04-19 15:14 Unspecified dementia , unspecified severity, with mood disturbance [facility] 2025-04-19 15:14 Depression, unspecified [facility] 2025-04-19 15:14 Abnormal weight loss [facility] 2025-04-19 15:14 Abnormal finding of blood chemi stry, unspecified [facility] 2025-04-19 15:14 Encounter for genera l adult medical examination without abnormal findings [facility] 2025-04-19 15:14 Encounter for screen ing for diseases of the blood and blood-forming organs and certain disorders involving the immune mechanism [facility] Social History date description facility
[2025-04-24 12:00] LABS: HCT - HEMATOCRIT 42.4 % (42.0-52.0); HGB - HEMOGLOBIN 13.9 g/dL (14.0-18.0); MEAN PLATELET VOLUME 9.9 fL (7.4-11.4); NRBC ABSOLUTE COUNT (AUTO) 0.00 x10^3/uL; NUCLEATED RED BLOOD CELLS AUTO 0.0 /100WBC; PLT - PLATELET COUNT 149 10^3/uL (130-450); RED CELL DISTRIBUTION WIDTH 12.9 % (12.0-15.0)
[2025-04-24 12:06] LABS: VBG BASE EXCESS 3.1 mmol/L (-2 - +2); VBG PCO2 38.4 mmHg (41-51); VBG PH 7.454 (7.31-7.41); VBG PO2 41.7 mmHg (25-47); VBG TOTAL CO2 28.4 mmol/L (24-29)
[2025-04-24 12:12] LABS: ALT ALANINE AMINOTRANSFERASE 12.0 IU/L (10-60); AST ASPARTATE AMINOTRANSFERASE 18.0 IU/L (10-42); BUN - BLOOD UREA NITROGEN 21.0 mg/dL (6-20); CARBON DIOXIDE - CO2 27.0 mmol/L (21-32); CREATININE 0.9 mg/dL (0.6-1.3); GFR - MDRD 82.0 (>89)
[2025-04-24] MEDS: ACETAMINOPHEN 1,000 MG/100 ML 1,000 MG/100 ML BAG IV ONE (12:33)
--- NOTE | 2025-04-24 12:33 | XRAY Report ---
PROCEDURE: XR Chest 1V INDICATIONS: AMS/possible pna/sepsis TECHNIQUE: One view of the chest was acquired. COMPARISON: None. FINDINGS: Surgical changes and devices: None. Lungs and pleura: No pleural effusions or pneumothorax. No consolidation. Mediastinum: Mediastinal contours appear normal. Heart size is normal. Bones and chest wall: No suspicious bony lesions. Overlying soft tissues appear unremarkable. IMPRESSION: No acute cardiopulmonary process. Reviewed by: George Escobedo MD on 04/24/2025 12:30 PM PST Approved by: George Escobedo MD on 04/24/2025 12:30 PM [facility] Station ID: [id number]
[2025-04-24] MEDS: SODIUM CHLORIDE 0.9% 1,000 ML IV STA (13:01)
--- NOTE | 2025-04-24 13:09 | HISTORY & PHYSICAL EXAMINATION ---
Chief Complaint Chief Complaint Chief Complaint: Fever History of Present Illness Admitted From Admitted From:: ED History Obtained From Records Reviewed: [facility] History obtained from: EMR, Family Exam Limitations: Patient has advanced dementia History of Present Illness HPI Comment/Other: This is a 79-year-old gentleman with advanced dementia who lives at home. He has a history of urinary continence, Alzheimer's disease, hyperlipidemia, hypertension. He is only on BPH meds, an antidepressant, and Alzheimer's medications. He presents after being found by his family to have high fever at home. Reportedly this morning, patient had an immense fever to 105 at home. He has not been exhibiting any Localizing symptoms otherwise. Here he has been found to have higher work of breathing. He was unable to get a urine sample. He has yet to produce any urine. He has been continue to have high fevers in the ED. He is receiving broad-spectrum antibiotics. Patient's family is at bedside, they say he has had no recent sick contacts. No wounds that they know of. He had normal bowel movement the day prior to this hospitalization. He has not had any diarrhea, nausea or vomiting. Other than his increased work of breathing, he has no other localizing symptoms. Prior to today, he has been in his usual baseline state of health. Meds/Allgy Home Medications Ambulatory Orders Medication Instructions Recorded Confirmed multivitamin 1 ea PO DAILY 09/03/1704/24 acyclovir 400 mg tablet 200 mg PO QID PRN As Needed Per 07/27/19 04/24/25 Provider Orders latanoprost (PF) 0.005 % eye drops 1 drp EACHEYE DAILY 07/27/19 04/24/25 nystatin 100,000 unit/gram topical 1 applic topical TI D tinea coporis 07/29/24 04/24/25 powder 14 days #30 grams triamcinolone acetonide 0.5 % 1 applic topical BID #15 grams 11/23/24 04/24/25 topical cream memantine 10 mg tablet (Namenda) 10 mg PO BID #180 tab s 01/28/25 04/24/25 galantamine 8 mg tablet 8 mg PO BID #180 tabs 04/24/25 finasteride 5 mg tablet 5 mg PO QDAY #90 tabs 04/24/25 tamsulosin 0.4 mg capsule 0.4 mg PO QDAY #90 caps 10/0 08/1704/24/25 citalopram 10 mg tablet 10 mg PO QDAY 30 days #30 ta bs 04/19/25 04/24/25 Allergies Allergies Allergy/AdvReac Type Severity Reaction Status Date / Time No Known Drug Allergies Allergy Verified 04/24/25 11:28 PFSH Active Problems All Active Problems (Updated 04/24/25 @ 18:24 by Jeramie Hernandez DO) Acute hypoxemic respiratory failure (Acute) BPH (benign prostatic hyperplasia) (Acute) Sepsis (Acute) Sepsis (Acute) 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) Urinary incontinence (Acute) Difficulty walking (Acute) Abnormal blood cell count (Acute) Hypotension (Acute) Decreased appetite (Acute) Weight loss (Acute) Alzheimer's dementia (Acute) Eczema (Acute) Hyperlipidemia (Acute) Hypertension, essential, benign (Acute) Tinea corporis (Acute) Irritant contact dermatitis due to urine (Acute) Medical History Medical History Alzheimer's dementia Social History Social History (Updated 04/24/25 @ 12:49 by Edith Turner RN) Smoking Status: Never smoker Second hand tobacco smoke exposure: No Do you dip or chew tobacco?: No Do you vape?: No Living arrangement: At home Marital Status: Living Condition: With spouse/s.o. Support Person: Yes Health Care Directive on file?: No Level: Dependent Do you feel safe in your home environment?: Yes History of physical, verbal, emotional, or financial abuse?: No ETOH Use: None Substance Use: denies use POLST Patient has POLST: No Exam Exam Vital Signs: Vital Signs x48h Temp Pulse Pulse Resp BP BP Pulse Ox 04/24/25 15:45 36.7 C 78 18 96/55 L 97 04/24/25 15:09 36.6 C 71 18 98/61 95 04/24/25 15:02 37.1 C 77 18 97/59 L 93 04/24/25 14:26 36.7 C 89 24 100/64 99 04/24/25 13:41 37.9 C 88 26 H 90/69 94 04/24/25 12:29 37.3 C 104 H 47 H 125/80 95 04/24/25 11:22 39.4 C H 100 35 H 123/73 91 L O2 Flow Rate 04/24/25 15:45 2 04/24/25 15:09 2 04/24/25 15:02 2 04/24/25 14:26 04/24/25 13:41 4 04/24/25 12:29 4 04/24/25 11:22 4 GEN: Frail appearing, nonverbal. HEENT: NC/AT, normal appearance of external ears and nose. Dentition generally intact. Hearing baseline. Cardiac: Regular rate and rhythm, no murmurs. Palpable distal pulses. Warm extremities. Pulm: Lungs CTA bilaterally, no cough, no wheezes. No adventitial lung sounds. Moving air throughout. Increased effort of breathing, tachypneic. Abdomen: Soft, nondistended. Does not wince with palpation of the abdomen. No guarding or rebound tenderness. Palpable stool burden. Extremities: No ulcerations on his feet or hands. No rashes or discolorations concerning for cellulitis Neuro: Face symmetric, CN II through XII intact grossly. He is moving all extremities. Responsive to voice. Face is symmetric. Nonverbal at baseline. Psych: Unable to assess. Sepsis Event Note (H) Evaluation Current Stage of Sepsis: Severe sepsis Possible source of Sepsis: positive Genitourinary Sepsis Criteria Sepsis Criteria: Recorded Temperature greater than 38.3C or Less than 36C, Recorded Heart Rate greater than 90 bpm, Recorded Respiratory Rate greater than 20, Respiratory: Increasing oxygen requirements and WBC count greater than 12,000 or less than 4000 Conclusion/Plan Problem List (1) Sepsis: Plan: Patient presented with tachycardic, high fever, leukocytosis. Unclear source of infection. Suspect urinary source overall. Endorgan damage with acute hypoxemic respiratory failure. Patient was started on cefepime in the ED. Blood cultures were drawn. - Discussed with Dr. Pimentel in the ED, I will admit to inpatient, I am opting to admit to [facility] status. - Follow-up blood cultures, NGTD - Has received 1200 cc of fluid, will give an additional liter bolus and then start on maintenance fluids - Every 4 hours vitals - Will get UA - Continue cefepime twice daily, de-escalate as he clinically improves - No clear Pseudomonas or MRSA risk factors, consider ceftriaxone (2) BPH (benign prostatic hyperplasia): (3) Acute hypoxemic respiratory failure: Plan: Likely in the setting of sepsis as above. His oxygen was initially 91. He was tachypneic. Rate up to 50 at the time. Differential mostly sepsis. Chest x-ray does not show evidence of pneumonia. In fact with a clear chest x-ray, his Wells score is 4. PE would be a unifying diagnosis. - CTA of his chest did not show PE - Wean oxygen as tolerated, goal saturation greater than 92% - Treat sepsis as above - Patient cannot participate in pulmonary toileting. - Appreciate RT support - He is DNI (4) Urinary incontinence: Plan: Patient with a history of urinary incontinence per his family. He is on treatments for BPH. Suspect he may have had overflow incontinence in the setting of untreated BPH. - Continue tamsulosin 5 mg and finasteride 5 mg. Patient takes at night Qualifiers: Urinary Incontinence type: other incontinence Qualified Code(s): N 39.498 - Other specified urinary incontinence (5) Alzheimer's dementia: Plan: Fairly advanced dementia. Patient is nonverbal. Patient does not initiate feeding on his own. He is able to swallow well. On my evaluation, he struggles to hold his head up. From his family's perspective, he is not far from his baseline, except for the fever and tachypnea. - Will continue galantamine and memantine at the family's request - These medicines are likely inappropriate and advanced dementia, can discuss de-escalation with them - See separate ACP note from today. Qualifiers: Alzheimer's disease onset: unspecified onset Dementia severity: severe Dementia behavioral or psychological symptom: unspecified whether behavioral, psychotic, or mood disturbance or anxiety Qualified Code(s): G30.9 - Alzheimer's disease, unspecified; F02.C0 - Dementia in other diseases classified elsewhere, severe, without behavioral disturbance, psychotic disturbance, mood disturbance, and anxiety (6) Depression due to dementia: Plan: Patient reportedly with a depression secondary to his dementia. He has been started on citalopram 10 mg only just recently filled. - Cautiously continue citalopram 10 mg at this time - Will discuss with pharmacy on whether this could be a interaction or idiosyncratic drug reaction Plan Plan by problem as above I spent a total of 52 minutes in the care of this patient today. This time was spent reviewing labs, vital signs, imaging, interviewing and examining the patient, and discussing plan of care with them and their other care providers. Patient with acute illness that poses a threat to life. Data review as above. Discussion with ED provider as above. Decision was made to admit the patient to inpatient status. Lab Results 04/24/25 11:50 04/24/25 11:50
[2025-04-24] MEDS: CEFEPIME 2 GM in SODIUM CHLORIDE 0.9% MINIBAG 100 ML IV STA (13:12)
[2025-04-24 13:37] LABS: B. PARAPERTUSSIS- RESP PCR PAN NOT DETECTED; B. PERTUSSIS- RESP PCR PANEL NOT DETECTED; C. PNEUMONIAE- RESP PCR PANEL NOT DETECTED; CORONAVIRUS 229E-RESP PCR NOT DETECTED; CORONAVIRUS HKU1-RESP PCR NOT DETECTED; CORONAVIRUS NL63-RESP PCR NOT DETECTED; CORONAVIRUS OC43-RESP PCR NOT DETECTED; HUMAN METAPNEUMOVIRUS NOT DETECTED; INFLUENZA A- RESP PCR PANEL NOT DETECTED; INFLUENZA B - RESP PCR PANEL NOT DETECTED; M. PNEUMONIAE- RESP PCR PANEL NOT DETECTED; PARAINFLUENZA VIRUS 1 NOT DETECTED; PARAINFLUENZA VIRUS 2 NOT DETECTED; PARAINFLUENZA VIRUS 4 NOT DETECTED; RHINOVIRUS/ENTEROVIRUS NOT DETECTED; RSV- RESP PCR PANEL NOT DETECTED; SARS-CoV-2 -RESP PCR PANEL NOT DETECTED
--- OUTSIDE RECORDS SUMMARY | 2025-04-24 13:44 | EXTERNAL MEDICAL SUMMARY RPT | Continuity of Care Document ---
Author Organization [facility] Address [address] [place] [id number] Phone Problems date description facility 2025-04-19 15:14 Vitamin D deficiency, unspecifi ed [facility] 2025-04-19 15:14 Hyperlipidemia, unspecified i [facility] 2025-04-19 15:14 Unspecified dementia , unspecified severity, with mood disturbance [facility] 2025-04-19 15:14 Depression, unspecified [facility] 2025-04-19 15:14 Abnormal weight loss [facility] 2025-04-19 15:14 Abnormal finding of blood chemi stry, unspecified [facility] 2025-04-19 15:14 Encounter for genera l adult medical examination without abnormal findings [facility] 2025-04-19 15:14 Encounter for screen ing for diseases of the blood and blood-forming organs and certain disorders involving the immune mechanism [facility] 2025-04-24 13:07 Sepsis, unspecified organism [facility] Results/Labs test date facility value unit notes Result panel 1 [facility] HCO3 2025-04-24 11:46 [facility] 27.2 mmol/l (missing) [facility] TOTAL CO2 2025-04-24 11:46 [facility] 28.4 mmol /l (missing) [facility] BASE EXCESS 2025-04-24 11:46 [facility] 3.1 mm ol/l (missing) [facility] PCO2 2025-04-24 11:46 [facility] 38.4 mmhg (missing) [facility] PO2 2025-04-24 11:46 [facility] 41.7 mmhg (missing) [facility] OXYGEN SATURATION 2025-04-24 11:46 [facility] 59.[facility] % ([facility]) [facility] PH 2025-04-24 11:46 [facility] 7.454 (missing ) (missing) Result panel 2 NUCLEATED RED BLOOD CELLS AUTO 2025-04-24 11:50 [facility] 0.0 /100wbc (missing) BASOPHILS # (AUTO) 2025-04-24 11:50 [facility] 0.0 10 3/ul (missing) EOSINOPHILS # (AUTO) 2025-04-24 11:50 [facility] 0.0 10 3/ul (missing) NRBC ABSOLUTE COUNT (AUTO) 2025-04-24 11:50 [facility] 0.00 x10 3/ul (missing) LYMPHOCYTES # (AUTO) 2025-04-24 11:50 [facility] 0.2 10 3/ul (missing) MONOCYTES # (AUTO) 2025-04-24 11:50 [facility] 0.8 10 3/ul (missing) BILIRUBIN,TOTAL 2025-04-24 11:50 [facility] 0.9 mg/dl As of November 2022 testing method has changed, this may include reference ranges. CREATININE 2025-04-24 11:50 [facility] 0.9 mg/dl As of November 2022 testing method has changed, this may include reference ranges. ALBUMIN/GLOBULIN RATIO 2025-04-24 11:50 [facility] 1.4 (missing) (missing) LACTIC ACID, VENOUS 2025-04-24 11:50 [facility] 1.8 mmol/l N As of November 2022 testing method has changed, this may include reference ranges. CHLORIDE 2025-04-24 11:50 [facility] 106 mmol/l As of November 2022 testing method has changed, this may include reference ranges. GLUCOSE 2025-04-24 11:50 [facility] 109 mg/dl As of November 2022 testing method has changed, this may include reference ranges. NEUTROPHILS # (AUTO) 2025-04-24 11:50 [facility] 11.2 10 3/ul (missing) ALT ALANINE AMINOTRANSFERASE 2025-04-24 11:50 [facility] 12 iu/l As of November 2022 testing method has changed, this may include reference ranges. WHITE BLOOD COUNT 2025-04-24 11:50 [facility] 12.3 x10 3/ul (missing) RED CELL DISTRIBUTION WIDTH 2025-04-24 11:50 [facility] 12.9 % (missing) HGB - HEMOGLOBIN 2025-04-24 11:50 [facility] 13.9 g/dl (missing) SODIUM 2025-04-24 11:50 [facility] 139 mmol/l (missing) PLT - PLATELET COUNT 2025-04-24 11:50 [facility] 149 10 3/ul (missing) AST ASPARTATE AMINOTRANSFERASE 2025-04-24 11:50 [facility] 18 iu/l As of November 2022 testing method has changed, this may include reference ranges. PROCALCITONIN 2025-04-24 11:50 [facility] 2.05 ng/ml Critical result PrCT 2.05 ng/mL called to and read back by NEHAL Davidson RN/ED at 24-Apr-2025 12:24 by Jason. PCT Concentration (ng/mL) Children >72hrs old and Adults Interpretation ====== ======= <0.5 Low risk of severe sepsis and/or septic shock >2.0 High risk of severe sepsis and/or septic shock Concentrations under 0.5 ng/mL do not exclude local infections or systemic infections in their initial stages (e.g. under six hours from onset of illness). PCT concentrations between 0.5 and 2.0 ng/mL should be interpreted with consideration of the patient's history. In this range, it is recommended to retest PCT within 6 to 24hours. GLOBULIN 2025-04-24 11:50 [facility] 2.6 g/dl (missing) BUN - BLOOD UREA NITROGEN 2025-04-24 11:50 [facility] 21 mg/dl As of November 2022 testing method has changed, this may include reference ranges. CARBON DIOXIDE - CO2 2025-04-24 11:50 [facility] 27 mmol/l As of November 2022 testing method has changed, this may include reference ranges. POTASSIUM 2025-04-24 11:50 [facility] 3.4 mmol/l As of November 2022 testing method has changed, this may include reference ranges. ALBUMIN 2025-04-24 11:50 [facility] 3.6 g/dl As of November 2022 testing method has changed, this may include reference ranges. MEAN CORPUSCULAR HEMOGLOBIN 2025-04-24 11:50 [facility] 31.2 pg (missing) MEAN CORPUSCULAR HGB CONC 2025-04-24 11:50 [facility] 32.8 g/dl (missing) RED BLOOD COUNT 2025-04-24 11:50 [facility] 4.46 10 6/ul (missing) HCT - HEMATOCRIT 2025-04-24 11:50 [facility] 42.4 % (missing) ANION GAP 2025-04-24 11:50 [facility] 6.0 (missing) (missing) TOTAL PROTEIN 2025-04-24 11:50 [facility] 6.2 g/dl As of November 2022 testing method has changed, this may include reference ranges. ALKALINE PHOSPHATASE 2025-04-24 11:50 [facility] 63 iu/l As of November 2022 testing method has changed, this may include reference ranges. CALCIUM 2025-04-24 11:50 [facility] 8.4 mg/dl As of November 2022 testing method has changed, this may include reference ranges. GFR - MDRD 2025-04-24 11:50 [facility] 82 (missing) The IDMS-traceable MDRD Study Equation has been validated extensively in and populations between the ages of 18 and 70 with impaired kidney function (eGFR < 60 mL/min/1.73m2) and has shown good performance for patients with all common causes of kidney disease. Although this equation has not been validated for patients older than 70, an MDRD-derived eGFR may still be a useful tool for providers caring for patients older than 70. References: http://www.nkdep.ni h.gov/lab-evaluatio n/gfr/creatinine-st and ardization, last updated July 2011. MEAN PLATELET VOLUME 2025-04-24 11:50 [facility] 9.9 fl (missing) MEAN CORPUSCULAR VOLUME 2025-04-24 11:50 [facility] 95.1 fl (missing) Social History date description facility
[2025-04-24] MEDS: LACTATED RINGERS 1,000 ML IV ONE (13:59)
--- NOTE | 2025-04-24 14:15 | CT Report ---
PROCEDURE: CT Angio Chest INDICATIONS: R/O PE CONTRAST: OMNI 300 80 ML TECHNIQUE: After the administration of intravenous contrast images of the chest were acquired. 3-dimensional coronal oblique maximum intensity projection (MIP) reformats, axial MIP, and coronal and sagittal MPR reformats were then performed through the chest. For radiation dose reduction, the following was used: automated exposure control, adjustment of mA and/or kV according to patient size. COMPARISON: 04/24/25 FINDINGS: Image quality: Excellent. Large vessels: No filling defects within the opacified pulmonary arteries, accounting for motion and contrast timing. No evidence of acute aortic syndrome or aortic aneurysm. Lungs and pleura: No consolidation. No pleural effusions. No pneumothorax. No suspicious pulmonary nodules which require follow up. Mediastinum: Heart size is normal. No pericardial effusion. No large vessel abnormality. No mediastinal adenopathy by size criteria. Chest wall and lower neck: Thyroid is unremarkable. No axillary or supraclavicular adenopathy by size. Bones: No aggressive osseous abnormality. Upper Abdomen: Unremarkable. IMPRESSION: No pulmonary embolus. No acute cardiopulmonary pathology. Reviewed by: George Escobedo MD on 04/24/2025 2:12 PM PST Approved by: George Escobedo MD on 04/24/2025 2:12 PM PST Station ID: [id number]
[2025-04-24] MEDS ORDERED: ONDANSETRON 4 MG/2 ML VIAL IVP PRN (14:42)
[2025-04-24] MEDS ORDERED: ACETAMINOPHEN 325 MG TABLET PO PRN (14:42)
[2025-04-24] MEDS ORDERED: ONDANSETRON ODT 4 MG TABLET TL PRN (14:42)
[2025-04-24] MEDS ORDERED: COD LIVER OIL/ZINC OXIDE 113 GM TUBE TOP PRN (14:43)
[2025-04-24] MEDS: LACTATED RINGERS 1,000 ML IV SCH (18:36)
--- NOTE | 2025-04-24 18:39 | ADVANCE CARE PLANNING NOTE ---
Advance Care Planning Planning Encounter Date: 04/24/25 Time: 12:00 Purpose: Admission to the hospital. Progressive decline Parties in Attendance: Patient's spouse, Jazzmine, and his son, Joshua Decisional Capacity of the Patient: Patient has chronic cognitive impairment. He is is nonverbal and not decisional. Diagnosis for Encounter (1) Sepsis: (2) BPH (benign prostatic hyperplasia): (3) Acute hypoxemic respiratory failure: (4) Urinary incontinence: Qualifiers: Urinary Incontinence type: other incontinence Qualified Code(s): N39.498 - Other specified urinary incontinence (5) Alzheimer's dementia: Qualifiers: Alzheimer's disease onset: unspecified onset Dementia severity: severe Dementia behavioral or psychological symptom: unspecified whether behavioral, psychotic, or mood disturbance or anxiety Qualified Code(s): G30.9 - Alzheimer's disease, unspecified; F02.C0 - Dementia in other diseases classified elsewhere, severe, without behavioral disturbance, psychotic disturbance, mood disturbance, and anxiety (6) Depression due to dementia: Encounter Subjective/Patient's Story: Mr. Billings is a 79-year-old male used to have a history of hypertension and hyperlipidemia. He developed Alzheimer's about 4 years ago. He has had a progressive decline in his Alzheimer's. He lives with his family at home. They have a good network of support set up for him. His son, Joshua retired from [employer] and is living with them. He provides a lot of support for his dad. His also lives in the home and provides significant support. They feel like they do a good job of keeping him a part of their family and involved. They live in [place]. They have follow-up with Betzy Castro locally. There have been discussions about referral to neurology, but these have been deferred as this is stressful for the family to travel. He has a very supportive family who are grateful for his care here in the hospital. Objective/Medical Story: In discussion with the patient's family and review his medical records, he has been diagnosed with Alzheimer's dementia somewhere around 2020. He has had a progressive decline since then. Fairly rapidly. Over the last year, he has had fluctuating cognition. He has become nonverbal. He does not walk much, uses a walker when he does so. Does not sound like he is bedbound. Definitively homebound without support. With regard to feeding, the family is unclear. They say that mealtimes are a "shared effort" between the patient and them. It sounds like he is requiring quite a bit of support from them. He eats rapidly, has choking episodes. His outpatient provider earlier this week reported that he has lost 14 pounds since her last visit in October. Goals of Care: The family is graciously come together to keep the patient at home. Keeping him in a safe environment. Support him when they can. They take him to doctors visits. They do not find local doctors visits to be terribly concerning. Their goals are to spend as many days with their father/ that they can. They valued quality over quantity. We discussed what would happen if he were to . They would not want resuscitative efforts. They would want him to be kept comfortable if he were suffering and not expected to improve. When asked specifically about intubation for a short trial if he were expected to get better they said they would not want to put him through that suffering. Plan: * Patient is DNR/DNI * We will continue to treat his infection during this hospitalization, hope fully he gets better * We will fill out a POLST prior to discharge * Patient's is his surrogate decision maker. His only child Joshua is secondary * They have previously completed power of litigation attorney paperwork, asked them to bring him to the hospital. Code Status: Do Not Attempt Resuscitation Time spent on advance care plannin
[2025-04-24 20:33] LABS: GLUCOSE, URINE (UA) NEGATIVE (NEGATIVE); KETONES,URINE (UA) NEGATIVE (NEGATIVE); OCCULT BLOOD,URINE SMALL (NEGATIVE)
[2025-04-24 20:39] LABS: SQUAMOUS EPITHELIAL CELL,UR FEW Squamous (<= Few)
[2025-04-24] MEDS: CEFEPIME 2 GM in SODIUM CHLORIDE 0.9% MINIBAG 100 ML IV SCH (21:02)
[2025-04-24] MEDS: LATANOPROST 0.005% OPHTH DROPS EACHEYE SCH (21:03)
[2025-04-24] MEDS: FINASTERIDE 5 MG TABLET PO SCH (21:03)
[2025-04-24] MEDS: TAMSULOSIN 0.4 MG CAPSULE PO SCH (21:03)
[2025-04-24] MEDS: TIMOLOL 0.5% OPHTH DROPS EACHEYE SCH (21:07)
--- NOTE | 2025-04-25 07:30 | PROVIDER PROGRESS NOTE ---
Subjective Prog Note Date Prog Note Date: 04/25/25 Prog Note Time: 07:29 Subjective Subjective: Patient has remained stable overnight. He is defervesced since yesterday morning. His vital signs are otherwise stable. Nontachycardic. Weaning oxygen. He is satting in the high 90s on 2 L. He has no pseudomonal risk factors. De-escalating to ceftriaxone this morning. Urine was collected late yesterday. Rare bacteria negative for nitrites. Remainder of his lab workup this morning looks good. His leukocytosis is resolved. Some dilutional effect on his hemoglobin. His metabolic panel is pristine including normal renal function. The patient is up and eating breakfast this morning. He is smiling. He is asked by nutrition what his favorite Ensure flavor is not he loudly says chocolate. This is the first time I have heard him phonate. His says he looks better than he has looked in several weeks. She is happy smiling. She tells me about his diet, he normally eats a soft bite-size diet. Nutrition has helped me change his diet to this. Current Medications Current Medications Current Medications: Current Medications Generic Name Dose Route Start Last Admin Trade Name Freq PRN Reason Stop Dose Admin Acetaminophen 650 mg 04/24/25 14:42 Acetaminophen 325 Mg Tablet PO Q4HR PRN Pain 1 to 4, or Fever Citalopram Hydrobromide 10 mg 04/25/25 09:00 Citalopram 10 Mg Tablet PO DAILY CRISTIANO Enoxaparin Sodium 40 mg 04/25/25 09:00 Enoxaparin 40 Mg/0.4 Ml Syringe SUBQ DAILY CRISTIANO Finasteride 5 mg 04/24/25 21:00 04/24/25 21:03 Finasteride 5 Mg Tablet PO 5 mg NIGHTLY CRISTIANO Administration Cefepime HCl 2 gm/ Sodium 100 mls @ 200 mls/hr 04/24/25 21:00 04/24/25 22:01 Chloride IV Infused BID CRISTIANO Infusion Lactated Ringer's 1,000 mls @ 83.333 mls/hr 04/24/25 19:00 04/24/25 18:36 Lr IV 83.33 mls/hr .Q12H CRISTIANO Administration Latanoprost 1 drops 04/24/25 21:00 04/24/25 21:03 Latanoprost 0.005% Ophth Drops EACHEYE 1 drops QPM CRISTIANO Administration Memantine 10 mg 04/25/25 08:00 Memantine 5 Mg Tablet PO BIDWM [facility] Multivitamins 1 tab 04/25/25 08:00 Multivitamin Tablet PO DAILYWM [facility] Non-Formulary Medication 8 mg 04/25/25 08:00 Galantamine PO BIDWM [facility] Ondansetron HCl 4 mg 04/24/25 14:42 Ondansetron 4 Mg/2 Ml Vial IVP Q6HR PRN Nausea / Vomiting Ondansetron HCl 4 mg 04/24/25 14:42 Ondansetron Odt 4 Mg Tablet TL Q6HR PRN Nausea / Vomiting Tamsulosin HCl 0.4 mg 04/24/25 21:00 04/24/25 21:03 Tamsulosin 0.4 Mg Capsule PO 0.4 mg NIGHTLY [facility] Administration Timolol Maleate 1 drops 04/24/25 21:00 04/24/25 21:07 Timolol 0.5% Ophth Drops EACHEYE Not Given BID [facility] Zinc Oxide 113 gm 04/24/25 14:43 Cod Liver Oil/Zinc Oxide 113 Gm Tube TOP PRN PRN Skin Care Objective Vital Signs/Intake & Output Reviewed Vital Signs: Yes Vital Signs: Vital Signs x48h Temp Pulse Resp BP Pulse Ox O2 Flow Rate 04/25/25 04:50 36.6 C 57 L 18 102/56 L 98 2 04/25/25 00:44 36.4 C L 65 18 107/61 99 2 Intake & Output: Intake & Output 04/22/25 04/23/25 04/24/25 04/25/25 23:59 23:59 23:59 23:59 Intake Total 2540 / 2540 0 / 0 Output Total 150 / 150 Balance 2390 / 2390 0 / 0 Weight (kg) 67 kg Objective Comments/Other: GEN: Frail appearing, sitting upright. Appears comfortable HEENT: NC/AT, normal appearance of external ears and nose. Dentition generally intact. Hearing baseline. Cardiac: Regular rate and rhythm, no murmurs. Palpable distal pulses. Warm extremities. Pulm: Lungs CTA bilaterally, no cough, no wheezes. No adventitial lung sounds. Normal effort on 2 L this morning. Abdomen: Soft, nondistended. Does not wince with palpation of the abdomen. No guarding or rebound tenderness. Extremities: No ulcerations on his feet or hands. No rashes or discolorations concerning for cellulitis Neuro: Face symmetric, CN II through XII intact grossly. He is moving all extremities. Responsive to voice. Face is symmetric. Speech is sparse but fluent. Psych: Says he feels happy. Pleasant. Lab Results 04/25/25 07:36 04/25/25 07:36 Other Labs: Lab Results x24hrs 04/24/25 04/24/25 04/24/25 Range/Units 20:15 12:29 11:50 WBC 12.3 H (4.8-10.8) x10^3/uL RBC 4.46 L (4.70-6.10) 10^6/uL Hgb 13.9 L (14.0-18.0) g/dL Hct 42.4 (42.0-52.0) % MCV 95.1 H (80.0-94.0) fL MCH 31.2 H (27.0-31.0) pg MCHC 32.8 (32.0-36.0) g/dL RDW 12.9 (12.0-15.0) % Plt Count 149 (130-450) 10^3/uL MPV 9.9 (7.4-11.4) fL Neut # (Auto) 11.2 H (1.5-6.6) 10^3/uL Lymph # (Auto) 0.2 L (1.5-3.5) 10^3/uL Montague # (Auto) 0.8 (0.0-1.0) 10^3/uL Eos # (Auto) 0.0 (0.0-0.7) 10^3/uL Baso # (Auto) 0.0 (0.0-0.1) 10^3/uL Absolute Nucleated RBC 0.00 x10^3/uL Nucleated RBC % 0.0 /100WBC VBG pH (7.31-7.41) VBG pCO2 (41-51) mmHg VBG pO2 (25-47) mmHg VBG HCO3 (23-28) mmol/L VBG Total CO2 (24-29) mmol/L VBG O2 Saturation (60-80) % VBG Base Excess (-2 - +2) mmol/L Sodium 139 (135-145) mmol/L Potassium 3.4 L (3.5-4.5) mmol/L Chloride 106 (101-111) mmol/L Carbon Dioxide 27 (21-32) mmol/L Anion Gap 6.0 (6-13) BUN 21 H (6-20) mg/dL Creatinine 0.9 (0.6-1.3) mg/dL Estimated GFR (MDRD) 82 L (>89) Glucose 109 H (74-104) mg/dL Lactic Acid 1.8 (0.5-2.2) mmol/L Calcium 8.4 L (8.5-10.3) mg/dL Total Bilirubin 0.9 (0.2-1.0) mg/dL AST 18 (10-42) IU/L ALT 12 (10-60) IU/L Alkaline Phosphatase 63 (42-121) IU/L Total Protein 6.2 L (6.4-8.9) g/dL Albumin 3.6 (3.2-5.5) g/dL Globulin 2.6 (2.1-4.2) g/dL Albumin/Globulin Ratio 1.4 (1.0-2.2) Procalcitonin Immunoas 2.05 H* (<0.5) ng/mL Urine Color YELLOW Urine Clarity CLEAR (CLEAR) Urine pH 6.0 (5.0-7.5) PH Ur Specific Blackey 1.020 (1.002-1.030) Urine Protein NEGATIVE (NEGATIVE) mg/dL Urine Glucose (UA) NEGATIVE (NEGATIVE) mg/dL Urine Ketones NEGATIVE (NEGATIVE) mg/dL Urine Occult Blood SMALL (NEGATIVE) Urine Nitrite NEGATIVE (NEGATIVE) Urine Bilirubin NEGATIVE (NEGATIVE) Urine Urobilinogen 0.2 (NORMAL) (NORMAL) E.U./dL Ur Leukocyte Esterase NEGATIVE (NEGATIVE) Urine RBC 0-5 (0-5) /HPF Urine WBC 4-5 (0-3) /HPF Ur Squamous Epith Cells FEW Squamous (<= Few) Urine Bacteria Rare (None Seen) /HPF Ur Microscopic Review INDICATED Urine Culture Comments NOT INDICATED Nasal Adenovirus (PCR) NOT DETECTED Nasal B. parapertussis DNA (PCR) NOT DETECTED Nasal Coronavir 229E PCR NOT DETECTED Nasal Coronavir HKU1 PCR NOT DETECTED Nasal Coronavir NL63 PCR NOT DETECTED Nasal Coronavir OC43 PCR NOT DETECTED Nasal Enterovir/Rhinovir PCR NOT DETECTED Nasal Influenza B PCR NOT DETECTED Nasal Influenza A PCR NOT DETECTED Nasal Parainfluen 1 PCR NOT DETECTED Nasal Parainfluen 2 PCR NOT DETECTED Nasal Parainfluen 3 PCR NOT DETECTED Nasal Parainfluen 4 PCR NOT DETECTED Nasal RSV (PCR) NOT DETECTED Nasal B.pertussis DNA PCR NOT DETECTED Nasal C.pneumoniae (PCR) NOT DETECTED Mukesh Human Metapneumo PCR NOT DETECTED Nasal M.pneumoniae (PCR) NOT DETECTED Nasal SARS-CoV-2 (PCR) NOT DETECTED 04/24/25 Range/Units 11:46 WBC (4.8-10.8) x10^3/uL RBC (4.70-6.10) 10^6/uL Hgb (14.0-18.0) g/dL Hct (42.0-52.0) % MCV (80.0-94.0) fL MCH (27.0-31.0) pg MCHC (32.0-36.0) g/dL RDW (12.0-15.0) % Plt Count (130-450) 10^3/uL MPV (7.4-11.4) fL Neut # (Auto) (1.5-6.6) 10^3/uL Lymph # (Auto) (1.5-3.5) 10^3/uL Montague # (Auto) (0.0-1.0) 10^3/uL Eos # (Auto) (0.0-0.7) 10^3/uL Baso # (Auto) (0.0-0.1) 10^3/uL Absolute Nucleated RBC x10^3/uL Nucleated RBC % /100WBC VBG pH 7.454 H (7.31-7.41) VBG pCO2 38.4 L (41-51) mmHg VBG pO2 41.7 (25-47) mmHg VBG HCO3 27.2 (23-28) mmol/L VBG Total CO2 28.4 (24-29) mmol/L VBG O2 Saturation 59.0 L (60-80) % VBG Base Excess 3.1 H (-2 - +2) mmol/L Sodium (135-145) mmol/L Potassium (3.5-4.5) mmol/L Chloride (101-111) mmol/L Carbon Dioxide (21-32) mmol/L Anion Gap (6-13) BUN (6-20) mg/dL Creatinine (0.6-1.3) mg/dL Estimated GFR (MDRD) (>89) Glucose (74-104) mg/dL Lactic Acid (0.5-2.2) mmol/L Calcium (8.5-10.3) mg/dL Total Bilirubin (0.2-1.0) mg/dL AST (10-42) IU/L ALT (10-60) IU/L Alkaline Phosphatase (42-121) IU/L Total Protein (6.4-8.9) g/dL Albumin (3.2-5.5) g/dL Globulin (2.1-4.2) g/dL Albumin/Globulin Ratio (1.0-2.2) Procalcitonin Immunoas (<0.5) ng/mL Urine Color Urine Clarity (CLEAR) Urine pH (5.0-7.5) PH Ur Specific Blackey (1.002-1.030) Urine Protein (NEGATIVE) mg/dL Urine Glucose (UA) (NEGATIVE) mg/dL Urine Ketones (NEGATIVE) mg/dL Urine Occult Blood (NEGATIVE) Urine Nitrite (NEGATIVE) Urine Bilirubin (NEGATIVE) Urine Urobilinogen (NORMAL) E.U./dL Ur Leukocyte Esterase (NEGATIVE) Urine RBC (0-5) /HPF Urine WBC (0-3) /HPF Ur Squamous Epith Cells (<= Few) Urine Bacteria (None Seen) /HPF Ur Microscopic Review Urine Culture Comments Nasal Adenovirus (PCR) Nasal B. parapertussis DNA (PCR) Nasal Coronavir 229E PCR Nasal Coronavir HKU1 PCR Nasal Coronavir NL63 PCR Nasal Coronavir OC43 PCR Nasal Enterovir/Rhinovir PCR Nasal Influenza B PCR Nasal Influenza A PCR Nasal Parainfluen 1 PCR Nasal Parainfluen 2 PCR Nasal Parainfluen 3 PCR Nasal Parainfluen 4 PCR Nasal RSV (PCR) Nasal B.pertussis DNA PCR Nasal C.pneumoniae (PCR) Mukesh Human Metapneumo PCR Nasal M.pneumoniae (PCR) Nasal SARS-CoV-2 (PCR) Sepsis Event Note (H) Evaluation Current Stage of Sepsis: Severe sepsis Possible source of Sepsis: positive Genitourinary Sepsis Criteria Sepsis Criteria: Recorded Temperature greater than 38.3C or Less than 36C, Recorded Heart Rate greater than 90 bpm, Recorded Respiratory Rate greater than 20, Respiratory: Increasing oxygen requirements and WBC count greater than 12,000 or less than 4000 Assessment/Plan Problem List (1) Sepsis: Impression: Septic physiology is now resolved. He is normotensive. Afebrile. Last fever was yesterday morning. Patient presented with tachycardic, high fever, leukocytosis. Endorgan damage with relation to his acute hypoxemic respiratory failure. Unclear source of infection. Urine looked fairly clear., But may have been a fairly antibiotic saturated sample. He had been on antibiotics for a little while before it was able to be collected. He was not making urine initially. Pneumonia would also be reasonable given his respiratory symptoms on arrival. Patient was started on cefepime in the ED. Blood cultures were drawn. - No pseudomonal risk factors, de-escalate to ceftriaxone - Likely discharge on Augmentin, 5 days would cover for both respiratory and urinary sources - Follow-up blood cultures, NGTD - Patient is eating and drinking, will discontinue maintenance fluids - Likely med ready 04/26 for discharge home (2) BPH (benign prostatic hyperplasia): (3) Acute hypoxemic respiratory failure: Impression: Weaning appropriately. Was on room air for time today. Recall that on initial presentation, his oxygen was initially 91. He was tachypneic. Rate up to 50 at the time. Differential mostly sepsis. Chest x-ray does not show evidence of pneumonia. In fact with a clear chest x-ray, his Wells score is 4. PE would be a unifying diagnosis. CTA of his chest did not show PE - Wean oxygen as tolerated, goal saturation greater than 92% - Treat sepsis as above - Patient cannot participate in pulmonary toileting. - Appreciate RT support - He is DNI (4) Urinary incontinence: Impression: Patient with a history of urinary incontinence per his family. He is on treatments for BPH. Suspect he may have had overflow incontinence in the setting of untreated BPH. - Continue tamsulosin 5 mg and finasteride 5 mg. Qualifiers: Urinary Incontinence type: other incontinence Qualified Code(s): N 39.498 - Other specified urinary incontinence (5) Alzheimer's dementia: Impression: Fairly advanced dementia. He is able to swallow well. He looks much better today, and is able to hold his head up. Participate with feeding. Apparently feeds himself at times. After treatment of his infection as above, he has begun looking "better than he has in weeks". - Will continue galantamine and memantine at the family's request - Family is requesting home health services, will order - See separate ACP note from today. 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 He has been started on citalopram 10 mg only just recently filled. Unlikely related to his present condition. - Cautiously continue citalopram 10 mg at this time I spent a total of 41 minutes in the care of this patient today. This time was spent reviewing labs, vital signs, imaging, interviewing and examining the patient, and discussing plan of care with them and their other care providers. Treating sepsis which is an acute illness with risk to life. Review of data as above. Prescription management as above. [id number]
[2025-04-25 07:47] LABS: HCT - HEMATOCRIT 36.3 % (42.0-52.0); HGB - HEMOGLOBIN 12.0 g/dL (14.0-18.0); MEAN PLATELET VOLUME 9.9 fL (7.4-11.4); NRBC ABSOLUTE COUNT (AUTO) 0.00 x10^3/uL; NUCLEATED RED BLOOD CELLS AUTO 0.0 /100WBC; PLT - PLATELET COUNT 146 10^3/uL (130-450); RED CELL DISTRIBUTION WIDTH 13.2 % (12.0-15.0)
[2025-04-25 08:33] LABS: ALT ALANINE AMINOTRANSFERASE 13.0 IU/L (10-60); AST ASPARTATE AMINOTRANSFERASE 22.0 IU/L (10-42); BUN - BLOOD UREA NITROGEN 18.0 mg/dL (6-20); CARBON DIOXIDE - CO2 27.0 mmol/L (21-32); CREATININE 0.8 mg/dL (0.6-1.3); GFR - MDRD 94.0 (>89)
[2025-04-25] MEDS: CITALOPRAM 10 MG TABLET PO SCH (08:39)
[2025-04-25] MEDS: ENOXAPARIN 40 MG/0.4 ML SYRINGE SUBQ SCH (08:39)
[2025-04-25] MEDS: cefTRIAXone 2 GM in SODIUM CHLORIDE 0.9% MINIBAG 100 ML IV SCH (08:39)
[2025-04-25] MEDS: MULTIVITAMIN TABLET PO SCH (08:39)
[2025-04-25] MEDS: MEMANTINE 5 MG TABLET PO SCH (08:44)
[2025-04-25] MEDS ORDERED: MULTIVITAMIN PO SCH (09:00)
--- NOTE | 2025-04-25 13:40 | PHARMACY PROGRESS NOTE ---
Best Possible Medication History Admit Date and Time: 04/24/25 1301 Home Medications Medication Instructions Recorded Confirmed Type multivitamin 1 ea PO DAILY 09/03/1704/24 History acyclovir 400 mg tablet 400 mg PO TID PRN cold sores 07/27/19 04/25/25 History memantine 10 mg tablet (Namenda) 10 mg PO BID #180 tab s 01/28/25 04/24/25 Rx galantamine 8 mg tablet 8 mg PO BID #180 tabs 04/24/25 Rx citalopram 10 mg tablet 10 mg PO DAILY 04/25/25 12/06/19 History finasteride 5 mg tablet 5 mg PO HS 04/25/25 04/25/25 History latanoprost 0.005 % eye drops 1 drp ophthalmic (eye) Q PM 04/25/25 04/25/25 History nystatin 100,000 unit/gram topical 1 applic topical TI D PRN tinea 04/25/25 04/25/25 History powder coporis omega-3 acid ethyl esters 1 gram 1 cap PO DAILY 04/25/25 History capsule tamsulosin 0.4 mg capsule 0.4 mg PO HS 04/25/25 History timolol maleate 0.5 % eye drops 1 drp ophthalmic (eye) BID 04/25/25 04/25/25 History triamcinolone acetonide 0.5 % 1 applic topical BID PRN rash 04/25/25 04/25/25 History topical cream Processed by: Pharmacy (Medication reconciliation completed by [employer]) Medications reviewed in ED?: No Medication History completed: Yes Patient Interview: Pt unable to participate Secondary Source(s): Spouse/Significant other and Insurance records [facility] Statement: As the person ultimately responsible for medication therapy, providers are able to order a medication from an existing home medication list in [facility] via the "Reconcile Routine" prior to Confirmation of that medication by technical support internship. Such practice is discouraged except when the physician, in their clinical judgment, deems that a medical need exists for a medication without regard to previous use.
[2025-04-26 05:01] LABS: HCT - HEMATOCRIT 37.8 % (42.0-52.0); HGB - HEMOGLOBIN 12.4 g/dL (14.0-18.0); MEAN PLATELET VOLUME 10.4 fL (7.4-11.4); NRBC ABSOLUTE COUNT (AUTO) 0.00 x10^3/uL; NUCLEATED RED BLOOD CELLS AUTO 0.0 /100WBC; PLT - PLATELET COUNT 148 10^3/uL (130-450); RED CELL DISTRIBUTION WIDTH 13.1 % (12.0-15.0)
[2025-04-26 05:17] LABS: BUN - BLOOD UREA NITROGEN 13.0 mg/dL (6-20); CARBON DIOXIDE - CO2 30.0 mmol/L (21-32); CREATININE 0.8 mg/dL (0.6-1.3); GFR - MDRD 94.0 (>89)
[2025-04-26 14:24] VITALS: BP 124/69; TEMP 98.6; O2SAT 94
--- NOTE | 2025-04-26 23:09 | Discharge Summary ---
Discharge Summary Admit Date: 04/24/25 Discharge Date: 04/26/25 Discharging Provider: Jeramie Hernandez Primary Care Provider: Betzy Castro Code Status: Do Not Attempt Resuscitation Discharge Facility Name: Home with home health DIAGNOSES Discharge Diagnoses with Status of Each Condition: ## Sepsis Patient presented with tachycardic, high fever, leukocytosis. Endorgan damage with relation to his acute hypoxemic respiratory failure. He defervesced quickly on hospital day 1. He was having high-grade fevers in the ED up to nearly 40 C. Overall unclear source of infection. His urine did not show evidence of infection. It may have been a falsely septic sample as his bladder was empty when antibiotics were started. He only had a significant amount of urine in his bladder several hours after he was on antibiotics. He was initially treated with broad-spectrum antibiotics, stepdown to ceftriaxone given his clinical stability on hospital day 1. He has no Pseudomonas risk factors. He had attendant hypoxemic respiratory failure which also improved by hospital day 1. Empirically treating him for both urine and pulmonary infections, but ultimately believe that an early urine sample may have been of higher yield. His chest x- ray looks pristine. Blood cultures drawn in the ED prior to antibiotics are no growth after 3 days - Discharging with 2 additional days of Augmentin to complete 5-day course for both respiratory and urinary coverage - Completed 3 days of antibiotics IV during this hospitalization ## Acute hypoxemic respiratory failure: Recall that on initial presentation, his RA oxygen was initially 91. He was tachypneic. Rate up to 50 at the time. On room air suspect the etiology of his hypoxemic respiratory failure is from sepsis alone. He does not have evidence of pneumonia. Given his tachycardia and Wells score for, PE was considered but ruled out with CTA. ## BPH (benign prostatic hyperplasia) ## Urinary incontinence Patient with a history of urinary incontinence per his family. He is on treatments for BPH. Suspect he may have had overflow incontinence in the setting of untreated BPH. He was continued on tamsulosin 5 mg and finasteride 5 mg. ## Alzheimer's dementia Patient has progressive dementia. His has not had many conversations about this in the past. She had many questions about prognosis. I believe him to be in the last 12 months of his life. He is very limited in his verbal interaction. He is completely dependent on his family for ADLs and IADLs. He still will eat, but requires frequent cueing. I described the that when he stops accepting food, that is the time where he is a hospice appropriate. - We filled out a DNR/selective treatment POLST on day of discharge - Will continue galantamine and memantine at the family's request, Probably of limited utility with his advanced disease - Family is requesting home health services, will order - See separate ACP note from today. ## Depression due to dementia Patient reportedly with a depression secondary to his dementia. He is on citalopram in the community. This was continued here. Frankly his mood seems pretty good. HPI History of Present Illness: This is a 79-year-old gentleman with advanced dementia who lives at home. He has a history of urinary continence, Alzheimer's disease, hyperlipidemia, hypertension. He is only on BPH meds, an antidepressant, and Alzheimer's medications. He presents after being found by his family to have high fever at home. Reportedly this morning, patient had an immense fever to 105 at home. He has not been exhibiting any Localizing symptoms otherwise. Here he has been found to have higher work of breathing. He was unable to get a urine sample. He has yet to produce any urine. He has been continue to have high fevers in the ED. He is receiving broad-spectrum antibiotics. Patient's family is at bedside, they say he has had no recent sick contacts. No wounds that they know of. He had normal bowel movement the day prior to this hospitalization. He has not had any diarrhea, nausea or vomiting. Other than his increased work of breathing, he has no other localizing symptoms. Prior to today, he has been in his usual baseline state of health. CONSULTS | PROCEDURES Consultations: None Procedures: CXR 04/24 CTA Chest 04/24 HOSPITAL COURSE Hospital Course: Patient came in from home with severe fevers. Septic physiology. Blood cultures were drawn in the ED. Those are no growth as of time of discharge. He had no other localizing symptoms other than hypoxemia in the ED. He was able to be weaned to room air by hospital day 1. His checks x-ray does not show any signs of pneumonia. He initially improved on broad-spectrum antibiotics with cefepime. By hospital day 1, his said he "looked better than he has in weeks". He has no pseudomonal risk factors. He was stepdown to ceftriaxone on hospital day 1. Will treat empirically for 5 days to cover both respiratory and urinary infections with Augmentin. This can be crushed. Other than that, during this hospitalization, we filled out a POLST. The patient is DNR/selective treatments. A lot of clarity around his disease progression. He ambulates with significant cueing. He is able to do so with assistive devices. Family is requesting additional home health to hopefully increase his mobility. I wonder about the efficacy of this, but do think it would be appropriate. I have ordered home health. Finally we discussed prognostication. I do believe that the patient is within the last year of his life. He does not seemingly initiate any activity. He will respond to cueing with eating, ambulating, and even limited social interaction. Suspect roughly stage VIIa. Nearing point of hospice appropriateness. is very involved in support groups. ALLERGIES Allergies Allergy/AdvReac Type Severity Reaction Status Date / Time No Known Drug Allergies Allergy Verified 04/24/25 11:28 MEDICATIONS Ambulatory Orders Medication Instructions Recorded Confirmed multivitamin 1 ea PO DAILY 09/03/1704/24 acyclovir 400 mg tablet 400 mg PO TID PRN cold sores 07/27/19 04/25/25 memantine 10 mg tablet (Namenda) 10 mg PO BID #180 tab s 01/28/25 04/24/25 galantamine 8 mg tablet 8 mg PO BID #180 tabs 04/24/25 citalopram 10 mg tablet 10 mg PO DAILY 04/25/2506/19 finasteride 5 mg tablet 5 mg PO HS 04/25/25 04/25/25 latanoprost 0.005 % eye drops 1 drp ophthalmic (eye) Q PM 04/25/25 04/25/25 nystatin 100,000 unit/gram topical 1 applic topical TI D PRN tinea 04/25/25 04/25/25 powder coporis omega-3 acid ethyl esters 1 gram 1 cap PO DAILY 04/25/25 capsule tamsulosin 0.4 mg capsule 0.4 mg PO HS 04/25/25 timolol maleate 0.5 % eye drops 1 drp ophthalmic (eye) BID 04/25/25 04/25/25 triamcinolone acetonide 0.5 % 1 applic topical BID PRN rash 04/25/25 04/25/25 topical cream Augmentin 875 mg-potassium 1 tab PO BID 2 days #4 tabs 04/26/25 clavulanate 125 mg tablet PHYSICAL EXAM AT DISCHARGE Vital Signs: Vital Signs x48h Temp Pulse Resp BP Pulse Ox 04/26/25 07:50 36.6 C 50 L 18 121/63 93 LABS 04/26/25 04:33 04/26/25 04:33 DIAGNOSTIC IMAGING Diagnostic Imaging Results: Final report reviewed and Read independently Diagnostic Imaging Results Comments: CTA chest 04/24:No pulmonary embolus. No acute cardiopulmonary pathology. CXR 04/24: No acute cardiopulmonary process. SEPSIS Current Stage of Sepsis: Resolved Possible source of Sepsis: Genitourinary Sepsis Criteria: Recorded Temperature greater than 38.3C or Less than 36C, Recorded Heart Rate greater than 90 bpm, Recorded Respiratory Rate greater than 20, Respiratory: Increasing oxygen requirements and WBC count greater than 12,000 or less than 4000 FOLLOW UP Follow Up: Follow-up with PCP within the next 1 month. TIME SPENT Time Spent in Discharge (Minutes): 37 Discharge Plan Discharge Patient Disposition: 06 Home Health Service Condition: Stable Prescriptions: New amoxicillin-pot clavulanate 875-125 mg tablet 1 tab PO BID 2 Days Qty: 4 0RF Rx Instructions: Start 04/27 Continued memantine [Namenda] 10 mg tablet 10 mg PO BID Qty: 180 0RF galantamine 8 mg tablet 8 mg PO BID Qty: 180 3RF Rx Instructions: NEEDS APPOINTMENT multivitamin 1 EACH capsule 1 ea PO DAILY acyclovir 400 MG tablet 400 mg PO TID PRN (Reason: cold sores) Rx Instructions: for 5 days latanoprost 0.005 % drops 1 drp ophthalmic (eye) QPM Rx Instructions: each eye timolol maleate 0.5 % drops 1 drp ophthalmic (eye) BID Rx Instructions: both eyes omega-3 acid ethyl esters 1 gram capsule 1 cap PO DAILY triamcinolone acetonide 0.5 % cream 1 applic topical BID PRN (Reason: rash) citalopram 10 mg tablet 10 mg PO DAILY tamsulosin 0.4 mg capsule 0.4 mg PO HS Rx Instructions: needs appointment nystatin 100,000 unit/gram powder 1 applic topical TID PRN (Reason: tinea coporis) finasteride 5 mg tablet 5 mg PO HS Activity Restrictions: No Restrictions Diet: Regular Health Concerns: You are being discharged from the hospital after treatment for a serious infection called sepsis. The exact etiology of your infection is not yet clear. But we will cover you for a respiratory as well as urinary possible source. You will need to continue taking antibiotics at home to complete your treatment. Your Medication You have been prescribed amoxicillin-clavulanate (Augmentin) to treat your infection. It is very important that you take this medication exactly as directed. How to take your medication: - Take each dose with a meal or snack to reduce stomach upset - Take the medication at the same times each day - Complete the full 5-day course even if you start feeling better. This only needs 2 more days of antibiotics, starting 12 - Skipping doses or stopping early can make the infection harder to treat and may cause bacteria to become resistant to antibiotics If you are taking tablets: - Swallow the tablets whole with water, Augmentin can be crushed in applesauce What to Watch For Allergic reactions: This medication contains penicillin and can cause allergic reactions in some people. Stop taking the medication immediately and seek emergency care if you develop: - Skin rash, hives, or blisters - Mouth sores or lesions - Difficulty breathing or swelling of the face, lips, or tongue Diarrhea: Diarrhea is common with antibiotics and usually goes away when you finish the medication. However, contact your doctor right away if you develop: - Severe diarrhea that lasts more than 2-3 days - Watery or bloody stools - Stomach cramps and fever Follow-Up Care - Attend all scheduled follow-up appointments with your doctor - Your doctor may want to check blood tests or cultures to make sure the infection is clearing - Contact your doctor if you develop new symptoms or if your symptoms get worse When to Seek Emergency Care Go to the emergency room or call 911 if you develop: - High fever (temperature over 101F or 38.3C) - Confusion or difficulty staying awake - Severe difficulty breathing - Chest pain - Signs of allergic reaction (listed above) - Severe abdominal pain Print Language: [place] Patient Instructions: Amoxicillin and Clavulanic Acid Follow-up Care: Betzy Castro ARNP [Primary Care Provider, Family Practice] Vitals documented within 30 minutes of discharge?: Yes
== END 2025-04-26 14:10 | disposition home health service (06) | DRG 871 ==
LOC: ED 11:20 → MS2 13:01
PROVIDERS: ADMIT Student in an Organized Health Care Education/Training Program; ATTEND Student in an Organized Health Care Education/Training Program
DX: A41.9 Sepsis, unspecified organism; F02.83 Dementia in other diseases classified elsewhere, unspecified severity, with mood disturbance; N40.0 Benign prostatic hyperplasia without lower urinary tract symptoms; R65.20 Severe sepsis without septic shock; I10 Essential (primary) hypertension; R32 Unspecified urinary incontinence; J96.01 Acute respiratory failure with hypoxia; F02.80 Dementia in other diseases classified elsewhere, unspecified severity, without behavioral disturbance, psychotic disturbance, mood disturbance, and anxiety; E78.5 Hyperlipidemia, unspecified; Z66 Do not resuscitate; G30.9 Alzheimer's disease, unspecified; F32.A Depression, unspecified